=== PATIENT | male | born 1965 | race Caucasian/White ===

== ENCOUNTER 2021-07-22 12:03 | Inpatient (IN) | payer SELFPAY ==
[~2021-07-22] VITALS: Ht 165 cm; Wt 77.0 kg
[~2021-07-22 12:03] MED LIST: ALFU10TA6; AMOX250S60; BTR10SP2; CITA40TA19; CYCL10TA9 PO; HYDR-690 PO; HYDR-707 PO; HYDR50CA3; IMITREX; LEVE500T6; NF-ESOM40C; VALS1TAB43
--- NOTE | 2021-07-22 12:34 | ED GI ---
General Chief Complaint: Abdominal/GI Problems Stated Complaint: DIARRHEA - LOW ABD PAIN Source of Information: Patient (ELINOR OWEN STUDENT) History of Present Illness Date Seen by Provider: Jul 22, 2021 Time Seen by Provider: 12:15 Initial Comments Patient is a 56 year old male with history significant for alcoholism, tobacco use disorder, and HTN who presents to the ED with complaints of 3-5 weeks of increasing abdominal distention, diarrhea, and gas. Reports he's tried a more bland diet at home with no relief of symptoms. Reports taking protonix for heartburn symptoms. The last 3 days he's been having 2-3 episodes of diarrhea per hour almost around the clock. Has had no known sick contacts or recent antibiotic usage. Reports nothing seems to worsen the symptoms. Nothing improves the symptoms. Denies fevers, chills, nausea, vomiting, chest pain, SOB. Reports some mild dysuria. Has not been evaluated for any of these symptoms yet. Reports eating and drinking well with no loss of appetite. No recent significant weight loss reported. Timing/Duration: Other (3-5 weeks) Severity/Quality: Moderate, Full Location: Generalized Abdomen Radiation: No Radiation Activities at Onset: None Modifying Factors: Improves With Movement, Improves With Palpation Associated Symptoms: No Back Pain, No Chest Pain, No Diaphoresis, No Fever/Chills; Heartburn; No Nausea/Vomiting; Rash; No Shortness of Air, No Weakness (ELINOR OWEN STUDENT) Allergies and Home Medications Allergies Coded Allergies: acetaminophen (Unverified Allergy, Mild, 06/30/09) Uncoded Allergies: MAO INHIBITORS (Allergy, Mild, 06/30/09) Patient Home Medication List Home Medication List Reviewed: Yes (ANUJ GARCIA MD) Alfuzosin Hcl (Uroxatral) 10 Mg Tab.sr.24h, (Reported) Entered as Reported by: MOHSEN LOVE on 06/30/09 0830 Amox Tr/Potassium Clavulanate (Amox Tr-K Clv 250-62.5/5 Susp) 250 Mg/5 Ml Susp.recon, (Reported) Entered as Reported by: MOHSEN LOVE on 06/30/09 0835 Butorphanol Tartrate (Stadol Ns) 10 Mg/Ml Can, (Reported) Entered as Reported by: MOHSEN LOVE on 06/30/09830 Citalopram Hydrobromide (Celexa) 40 Mg Tablet, (Reported) Entered as Reported by: MOHSEN LOVE on 06/30/09830 Cyclobenzaprine Hcl (Cyclobenzaprine Hcl) 10 Mg Tablet, 1 EACH PO Q8HR PRN Prescribed by: DEXTER VENCES MD on 06/30/09849 Esomeprazole Mag Trihydrate (Nexium) 40 Mg Capsule., (Reported) Entered as Reported by: MOHSEN LOVE on 06/30/09831 Hctz/Valsartan (Diovan Hct 160-25 Mg Tablet) 1 Tab Tablet, (Reported) Entered as Reported by: MOHSEN LOVE on 06/30/09829 Hydrocodone Bit/Acetaminophen (Lortab 5-500 Tablet) 1 Each Tablet, 1 EACH PO Q 4 - 6 HR PRN Prescribed by: DEXTER VENCES MD on 06/30/09849 Hydrocodone Bit/Ibuprofen (Hydrocodone Bt-Ibuprofen Tab) 1 Tab Tablet, 1 EACH PO Q 4 - 6 HRS PRN Prescribed by: DEXTER VENCES MD on 06/30/09951 Hydroxyzine Pamoate (Hydroxyzine Pamoate 50 Mg Cap) 50 Mg Capsule, (Reported) Entered as Reported by: MOHSEN LOVE on 06/30/09830 Levetiracetam (Levetiracetam) 500 Mg Tablet, (Reported) Entered as Reported by: MOHSEN LOVE on 06/30/09828 [Imitrex] , (Reported) Entered as Reported by: MOHSEN LOVE on 06/30/09830 Review of Systems Review of Systems Constitutional: No chills, No diaphoresis, No fever; malaise EENTM: No Symptoms Reported; No Blurred Vision, No Double Vision Respiratory: No Symptoms Reported; Denies Cough, Denies Shortness of Air Cardiovascular: No Symptoms Reported; Denies Chest Pain; Edema (BLE); Denies Lightheadedness, Denies Palpitations Gastrointestinal: See HPI, Abdomen Distended, Abdominal Pain; Denies Blood St reaked Stools, Denies Constipated; Diarrhea; Denies Nausea, Denies Poor Appetite, Denies Rectal Bleeding, Denies Vomiting Genitourinary: Burning; Denies Discharge, Denies Frequency, Denies Flank Pain Musculoskeletal: no symptoms reported; No back pain, No joint pain, No joint swelling Skin: dryness, rash Psychiatric/Neurological: No Symptoms Reported; Denies Anxiety, Denies Depressed; Headache Endocrine: No Symptoms Reported; Denies Excessive Sweating, Denies Flushing Hematologic/Lymphatic: No Symptoms Reported; Denies Easy Bleeding, Denies Easy Bruising ([employer] STUDENT) All Other Systems Reviewed Negative Unless Noted: Yes ([employer]ANDRA [employer] STUDENT) Past Btcmnnt-Wfignn-Vbrkub Hx Patient Social History Tobacco Use?: Yes Tobacco type used: Cigarettes (1.5 PPDx50 years) Smoking Status: Current Everyday Smoker Smokeless Tobacco Frequency: Never a User Use of E-Cig and/or Vaping dev: No Use of E-Cig and/or Vaping Johnnie: Never a User Substance use?: Yes Substance type: Marijuana Substance frequency: Daily Alcohol Use?: Yes Alcohol type: Hard Liquor (3-4 drinks per day of kali and coke daily) Alcohol Frequency: Daily Pt feels they are or have been: No ([employer]ANDRA [employer] STUDENT) Immunizations Up To Date Tetanus Booster (TDap): Unknown First/Initial COVID19 Vaccinat: 2020 Second COVID19 Vaccination Deven: 2020 COVID19 Vaccine 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 ([employer]) Seasonal Allergies Seasonal Allergies: Yes (ELINOR OWEN [employer] Past Medical History Surgery/Hospitalization HX: HEMMORHOID SURGERY Surgeries: Yes Respiratory: No Currently Using CPAP: No Currently Using BIPAP: No Cardiac: Yes High Cholesterol, Hypertension Neurological: Yes Headaches /Migraines Reproductive Disorders: No HIV/AIDS: No Genitourinary: No Gastrointestinal: Yes Gastroesophageal Reflux, Hemorrhoids, Polyps Musculoskeletal: No Endocrine: No HEENT: No Loss of Vision: Denies Hearing Impairment: Denies Cancer: No Psychosocial: No Integumentary: No Blood Disorders: No ([employer]ANDRA OW[employer]) Physical Exam Vital Signs Vital Signs - First Documented 07/22/21 12:05 Temp 36.2 Pulse 122 Resp 37 B/P (MAP) 175/93 (120) Pulse Ox 98 (ANUJ GARCIA MD) Vital Signs Capillary Refill : (SANDRA OWENKE MED STUDENT) Height/Weight/BMI Height: '" Weight: lbs. oz. kg; BMI Method:Stated General Appearance: WD/WN, no apparent distress HEENT: PERRL/EOMI, TMs normal, pharynx normal, other (poor dentition) Neck: non-tender, full range of motion Respiratory: chest non-tender, no respiratory distress, decreased breath sounds Cardiovascular: normal peripheral pulses, tachycardia Peripheral Pulses: 2+ Radial Pulses (R), 2+ Radial Pulses (L) Gastrointestinal: normal bowel sounds, distended, tenderness (just inferior to umbilicus and left sided. No voluntary guarding. Rovsing, heel strike negative.) Rectal: deferred Extremities: normal range of motion, no calf tenderness, pedal edema (left greater than right), swelling (BLE. Left +2 pitting edema around ankle) Back: normal inspection, no vertebral tenderness Neurologic/Psychiatric: no motor/sensory deficits, alert, oriented x 3 Skin: normal color, warm/dry, rash (erythematous rash to superior anterior thor ax just below neck. ) Lymphatic: no adenopathy (Head and Neck) (ELINOR OWEN MED STUDENT) Progress/Results/Core Measures Results/Orders Lab Results Laboratory Tests Test 07/22/21 12:20 07/22/21 12:42 Range/Units White Blood Count 20.5 H 4.3-11.0 10^3/uL Red Blood Count 3.66 L 4.30-5.52 10^6/uL Hemoglobin 14.0 13.3-17.7 g/dL Hematocrit 40 40-54 % Mean Corpuscular Volume 109 H 80-99 fL Mean Corpuscular Hemoglobin 38 H 25-34 pg Mean Corpuscular Hemoglobin Concent 35 32-36 g/dL Red Cell Distribution Width 16.3 H 10.0-14.5 % Platelet Count 315 130-400 10^3/uL Mean Platelet Volume 10.2 9.0-12.2 fL Immature Granulocyte % (Auto) 4 % Neutrophils (%) (Auto) 69 42-75 % Lymphocytes (%) (Auto) 24 12-44 % Monocytes (%) (Auto) 3 0-12 % Eosinophils (%) (Auto) 1 0-10 % Basophils (%) (Auto) 0 0-10 % Neutrophils # (Auto) 14.2 H 1.8-7.8 10^3/uL Lymphocytes # (Auto) 4.8 H 1.0-4.0 10^3/uL Monocytes # (Auto) 0.5 0.0-1.0 10^3/uL Eosinophils # (Auto) 0.1 0.0-0.3 10^3/uL Basophils # (Auto) 0.1 0.0-0.1 10^3/uL Immature Granulocyte # (Auto) 0.8 H 0.0-0.1 10^3/uL Neutrophils % (Manual) 68 % Lymphocytes % (Manual) 30 % Monocytes % (Manual) 2 % Poikilocytosis SLIGHT Anisocytosis SLIGHT Macrocytosis MODERATE Prothrombin Time 14.3 12.2-14.7 SEC INR Comment 1.1 0.8-1.4 Activated Partial Thromboplast Time 31 24-35 SEC Sodium Level 139 135-145 MMOL/L Potassium Level 2.3 *L 3.6-5.0 MMOL/L Chloride Level 98 98-107 MMOL/L Carbon Dioxide Level 27 21-32 MMOL/L Anion Gap 14 5-14 MMOL/L Blood Urea Nitrogen 6 L 7-18 MG/DL Creatinine 0.91 0.60-1.30 MG/DL Estimat Glomerular Filtration Rate 98 BUN/Creatinine Ratio 7 Glucose Level 178 H 70-105 MG/DL Calcium Level 8.6 8.5-10.1 MG/DL Corrected Calcium 8.9 8.5-10.1 MG/DL Total Bilirubin 1.1 H 0.1-1.0 MG/DL Aspartate Amino Transf (AST/SGOT) 48 H 5-34 U/L Alanine Aminotransferase (ALT/SGPT) 21 0-55 U/L Alkaline Phosphatase 123 40-136 U/L Total Protein 6.7 6.4-8.2 GM/DL Albumin 3.6 3.2-4.5 GM/DL Serum Alcohol < 10 <10 MG/DL Urine Color ORANGE Urine Clarity SL CLOUDY Urine pH 6.5 5-9 Urine Specific [place] 1.025 H 1.016-1.022 Urine Protein 1+ H NEGATIVE Urine Glucose (UA) NEGATIVE NEGATIVE Urine Ketones NEGATIVE NEGATIVE Urine Nitrite POSITIVE H NEGATIVE Urine Bilirubin 1+ H NEGATIVE Urine Urobilinogen 4.0 < = 1.0 MG/DL Urine Leukocyte Esterase NEGATIVE NEGATIVE Urine RBC (Auto) NEGATIVE NEGATIVE Urine RBC NONE /HPF Urine WBC RARE /HPF Urine Squamous Epithelial Cells 0-2 /HPF Urine Crystals NONE /LPF Urine Bacteria NEGATIVE /HPF Urine Casts NONE /LPF Urine Mucus SMALL H /LPF Urine Culture Indicated NO (ANUJ GARCIA MD) My Orders Orders - ANUJ GARCIA MD Ed Iv/Invasive Line Start (07/22/21 12:30) Cbc With Automated Diff (07/22/21 12:32) Comprehensive Metabolic Panel (07/22/21 12:32) Alcohol (07/22/21 12:32) Ua Culture If Indicated (07/22/21 12:33) Manual Differential (07/22/21 12:20) Protime With Inr (07/22/21 12:54) Partial Thromboplastin Time (07/22/21 12:54) Ct Abdomen/Pelvis Wo (07/22/21 13:29) Ns Iv 1000 Ml (Sodium Chloride 0.9%) (07/22/21 13:30) Potassium Cl 10meq/50ml Ivpb (Kcl 10 Meq (07/22/21 13:30) Ciprofloxacin Iv 400mg/200ml (Cipro Iv S (07/22/21 14:45) Metronidazole 500mg/100ml Ivpb (Flagyl 5 (07/22/21 14:45) Ed Admission (Communication) (07/22/21 15:20) Stool Culture (07/22/21 15:20) Occult Blood Stool (07/22/21 15:20) Parasite Scrn Stool Giard Cryp (07/22/21 15:20) C Difficile Ag + Toxin A/B. (07/22/21 15:20) Isolation Central Supply Req (07/22/21 15:20) (ANUJ GARCIA MD) Vital Signs/I&O 07/22/21 12:05 Temp 36.2 Pulse 122 Resp 37 B/P (MAP) 175/93 (120) Pulse Ox 98 (ANUJ GARCIA MD) Progress Progress Note : Time: 14:24 Progress Note Patient seen and evaluated by me, 56-year-old male who presents to the emergency department with a chief complaint of increasing abdominal girth, lower abdominal discomfort and too numerous to count episodes of diarrhea steadily increasing over the last 2 to 4 weeks. Patient is basically un-doctored. He has not seen a physician in at least 3 years. States that he drinks daily up to 5 mixed drinks a day. Smokes heavily. Denies any recent fevers, chills. No cough or shortness of breath. No blood that he has noted in his stool. Complains of a little urinary discomfort. Darker than normal urine at this ER visit. Feels something in his belly "moving around" when he turns onto his side. Great difficulty in sleeping at night secondary to abdominal discomfort. States he is only able to sleep 20 minutes at a time. No daily medications reported at this time - previous diagnosis of HTN Exam is pertinent for grossly distended abdomen, no palpable fluid wave however abdomen gives the appearance of ascites. Liver margin is felt quite low in the abdomen. Tender in the lower abdominal quadrants bilaterally no rebound or involuntary guarding. Bowel sounds are present. Patient is not icteric. Assessment: Labs reviewed, patient is profoundly hypokalemic with a serum potassium of 2.3. Quite tachycardic with a heart rate in the 120s. CT abdomen and pelvis shows nodular enlarged liver with a prominent gallbladder and findings suggestive of sigmoid diverticulitis. Will admit for fluids potassium replacement and antibiotics for the diverticulitis. Patient will likely need alcohol detox protocol. Will discuss with Dr. Mcdonnell, consult to Dr. Moore. (ANUJ GARCIA MD) Diagnostic Imaging Diagonstic Imaging: CT Plain Films/CT/US/NM/MRI: chest Comments [facility] [place], [place] NAME: SHRUTHI GUIDO MED REC#: [id number] PT STATUS: REG ER : 1965 PHYSICIAN: ANUJ GARCIA MD ADMIT DATE: 07/22/21/ER Draft Date of Exam:07/22/21 CT ABDOMEN/PELVIS WO PROCEDURE: CT abdomen and pelvis without contrast. TECHNIQUE: Multiple contiguous axial images were obtained through the abdomen and pelvis without the use of intravenous contrast. Auto Exposure Controls were utilized during the CT exam to meet ALARA standards for radiation dose reduction. INDICATION: Lower abdominal pain and diarrhea as well as bloating. COMPARISON: No prior studies are available for comparison. FINDINGS: Lung bases are clear of acute infiltrates. There is a calcified granuloma in the left lower lobe. The liver does show diffuse low density suggestive of hepatic steatosis. Liver parenchyma is heterogeneous. The liver is also enlarged at approximately 23 cm. There is some slight nodularity to the contour to the liver, and the possibility of cirrhosis cannot be entirely excluded. No discrete liver mass is seen. The gallbladder contains small stones. There is no biliary ductal dilatation. Pancreas is unremarkable. The spleen appears to be normal in size. Kidneys contain cortical low-attenuation lesions suggestive of cysts. There is no calculi or hydronephrosis. The aorta is heavily calcified but nonaneurysmal. Bowel loops are normal in caliber. There is no obstruction. There is a long segment of significant wall thickening involving the sigmoid colon. There is diverticulosis of the sigmoid colon. There is some perisigmoidal inflammation, and features could be owing to acute diverticulitis. There is no abscess formation or bowel obstruction seen. There is no free fluid. No free air is seen. The bladder is decompressed. Prostate is unremarkable. IMPRESSION: 1. Hepatomegaly and hepatic steatosis. There is a slight nodular contour to the liver, and possibility of cirrhosis cannot be entirely excluded. No discrete liver mass is detected. 2. Cholelithiasis. 3. Findings suggestive of acute sigmoid diverticulitis. No abscess formation or bowel obstruction is identified. Dictated on workstation # [id number] Dict: 07/22/21 1406 Trans: 07/22/21 1416 [id number] Interpreted by: ESTRELLA SALAS MD Electronically signed by: (ANUJ GARCIA MD) Departure Communication (Admissions) Time/Spoke to Admitting Phy: 15:[address] Mcdonnell; will do Que'd orders Time/Spoke to Consulting Phy: 15:[address] Moore (ANUJ GARCIA MD) Impression Primary Impression: Acute diverticulitis Additional Impressions: Hypokalemia due to excessive gastrointestinal loss of potassium Alcoholism Disposition: ADMITTED INPATIENT Condition: Stable Admissions Decision to Admit Reason: Admit from ER (General) Decision to Admit/Date: Jul 22, 2021 Time/Decision to Admit Time: 14:28 (ANUJ GARCIA MD) Departure-Patient Inst. Referrals: NO,LOCAL PHYSICIAN (PCP/Family) Primary Care Physician Verification and Attestation of Medical Student E/M Service A medical student performed and documented this service in my presence. I reviewed and verified all information documented by the medical student and made modifications to such information, when appropriate. I personally performed the physical exam and medical decision making. Anuj Garcia, Jul 22, 2021,14:01 (ANUJ GARCIA MD) ELINOR OWEN MED STUDENT Jul 22, 2021 12:34 ANUJ GARCIA MD Jul 22, 2021 14:01
[2021-07-22 12:46] LABS: BILIRUBIN,URINE 1+ (NEGATIVE); CLARITY,URINE SL CLOUDY; COLOR,URINE ORANGE; GLUCOSE, URINE (UA) NEGATIVE (NEGATIVE); KETONES,URINE NEGATIVE (NEGATIVE); LEUKOCYTE ESTERASE ,URINE NEGATIVE (NEGATIVE); NITRITE,URINE POSITIVE (NEGATIVE); PH,URINE 6.5 (5-9); PROTEIN,URINE 1+ (NEGATIVE)
[2021-07-22 12:47] LABS: BASOPHILS # (AUTO) 0.1 10^3/uL (0.0-0.1); BASOPHILS % (AUTO) 0 % (0-10); EOSINOPHILS # (AUTO) 0.1 10^3/uL (0.0-0.3); EOSINOPHILS % (AUTO) 1 % (0-10); HEMATOCRIT 40 % (40-54); LYMPHOCYTES # (AUTO) 4.8 10^3/uL (1.0-4.0); LYMPHOCYTES % (AUTO) 24 % (12-44); MEAN CORPUSCULAR HEMOGLOBIN 38 pg (25-34); MEAN CORPUSCULAR HGB CONC 35 g/dL (32-36); MEAN CORPUSCULAR VOLUME 109 fL (80-99); MEAN PLATELET VOLUME 10.2 fL (9.0-12.2); MONOCYTES # (AUTO) 0.5 10^3/uL (0.0-1.0); MONOCYTES % (AUTO) 3 % (0-12); NEUTROPHILS # (AUTO) 14.2 10^3/uL (1.8-7.8); NEUTROPHILS % (AUTO) 69 % (42-75); PLATELET COUNT 315 10^3/uL (130-400); WHITE BLOOD COUNT 20.5 10^3/uL (4.3-11.0)
[2021-07-22 12:55] LABS: WBC,URINE RARE /HPF
[2021-07-22 12:56] LABS: BACTERIA,URINE NEGATIVE /HPF; SQUAMOUS EPITHELIAL CELL,UR 0-2 /HPF
[2021-07-22 12:58] LABS: ALANINE AMINOTRANSFERASE 21 U/L (0-55); ALBUMIN 3.6 GM/DL (3.2-4.5); ALKALINE PHOSPHATASE 123 U/L (40-136); BILIRUBIN,TOTAL 1.1 MG/DL (0.1-1.0); BUN/CREATININE RATIO 7; CALCIUM 8.6 MG/DL (8.5-10.1); CARBON DIOXIDE 27 MMOL/L (21-32); CHLORIDE 98 MMOL/L (98-107); CREATININE SERUM 0.91 MG/DL (0.60-1.30); GFR ESTIMATED 98; GLUCOSE 178 MG/DL (70-105); SODIUM 139 MMOL/L (135-145); TOTAL PROTEIN 6.7 GM/DL (6.4-8.2)
[2021-07-22 13:00] LABS: POTASSIUM 2.3 MMOL/L (3.6-5.0)
[2021-07-22 13:11] LABS: INR 1.1 (0.8-1.4); PROTHROMBIN TIME PATIENT 14.3 SEC (12.2-14.7)
[2021-07-22 13:21] LABS: ANISOCYTOSIS SLIGHT; LYMPHOCYTES % (MANUAL) 30 %; MONOCYTES % (MANUAL) 2 %; NEUTROPHILS % (MANUAL) 68 %; POIKILOCYTOSIS SLIGHT
[2021-07-22] MEDS ORDERED: NS IV 1000 ML 1,000 ML IV SCH ×2 (13:30→16:15)
--- NOTE | 2021-07-22 14:16 | Diagnostic Imaging Report ---
PROCEDURE: CT abdomen and pelvis without contrast. TECHNIQUE: Multiple contiguous axial images were obtained through the abdomen and pelvis without the use of intravenous contrast. Auto Exposure Controls were utilized during the CT exam to meet ALARA standards for radiation dose reduction. INDICATION: Lower abdominal pain and diarrhea as well as bloating. COMPARISON: No prior studies are available for comparison. FINDINGS: Lung bases are clear of acute infiltrates. There is a calcified granuloma in the left lower lobe. The liver does show diffuse low density suggestive of hepatic steatosis. Liver parenchyma is heterogeneous. The liver is also enlarged at approximately 23 cm. There is some slight nodularity to the contour to the liver, and the possibility of cirrhosis cannot be entirely excluded. No discrete liver mass is seen. The gallbladder contains small stones. There is no biliary ductal dilatation. Pancreas is unremarkable. The spleen appears to be normal in size. Kidneys contain cortical low-attenuation lesions suggestive of cysts. There is no calculi or hydronephrosis. The aorta is heavily calcified but nonaneurysmal. Bowel loops are normal in caliber. There is no obstruction. There is a long segment of significant wall thickening involving the sigmoid colon. There is diverticulosis of the sigmoid colon. There is some perisigmoidal inflammation, and features could be owing to acute diverticulitis. There is no abscess formation or bowel obstruction seen. There is no free fluid. No free air is seen. The bladder is decompressed. Prostate is unremarkable. IMPRESSION: 1. Hepatomegaly and hepatic steatosis. There is a slight nodular contour to the liver, and possibility of cirrhosis cannot be entirely excluded. No discrete liver mass is detected. 2. Cholelithiasis. 3. Findings suggestive of acute sigmoid diverticulitis. No abscess formation or bowel obstruction is identified. Dictated by: Dictated on workstation # [id number]
[2021-07-22] MEDS ORDERED: CIPROFLOXACIN IV 400MG/200ML 200 ML IV ONE (14:45)
[2021-07-22] MEDS ORDERED: metroNIDAZOLE 500MG/100ML IVPB 100 ML IV ONE (14:45)
[2021-07-22] MEDS: POTASSIUM CL 10MEQ/50ML IVPB 50 ML IV SCH ×2 (14:55→15:55)
--- NOTE | 2021-07-22 16:54 | Consultation - Surgery ---
SVETAMARTHA 07/22/21 1654: History of Present Illness History of Present Illness Patient Consulted On(obdulia/time) 07/22/21 16:47 Date Seen by Provider: Jul 22, 2021 Time Seen by Provider: 16:50 Reason for Visit: Diarrhea; abdominal pain History of Present Illness Pt 56 yo male with GERD, HTN, migraines, and hx of hemorrhoids that presented to the ER with 5 or 6 weeks of LLQ pain and explosive diarrhea. The 6/10 pain was worse with movement and better after going to the bathroom. It was a cramping pain that radiated to his back, now it is more constant and sharp. He has had no N/V, but frequent yellow diarrheal episodes (9 today). Denies hematochezia and melena. The pt had diverticula diagnosed on colonoscopy 3-4 years ago, but has not had diverticulitis symptoms before. He last ate before he came to the ER. He is now on a CLD. Denies CP, SOB, fever, and chills currently. Allergies and Home Medications Allergies Coded Allergies: acetaminophen (Unverified Allergy, Mild, 06/30/09) Uncoded Allergies: MAO INHIBITORS (Allergy, Mild, 06/30/09) Patient Home Medication List Alfuzosin Hcl (Uroxatral) 10 Mg Tab.sr.24h, (Reported) Entered as Reported by: MOHSEN LOVE on 06/30/09 0830 Amox Tr/Potassium Clavulanate (Amox Tr-K Clv 250-62.5/5 Susp) 250 Mg/5 Ml Susp.recon, (Reported) Entered as Reported by: MOHSEN LOVE on 06/30/09 0835 Butorphanol Tartrate (Stadol Ns) 10 Mg/Ml Can, (Reported) Entered as Reported by: MOHSEN LOVE on 06/30/09 0831 Citalopram Hydrobromide (Celexa) 40 Mg Tablet, (Reported) Entered as Reported by: MOHSEN LOVE on 06/30/09 0831 Cyclobenzaprine Hcl (Cyclobenzaprine Hcl) 10 Mg Tablet, 1 EACH PO Q8HR PRN Prescribed by: DEXTER VENCES MD on 06/30/09 0850 Esomeprazole Mag Trihydrate (Nexium) 40 Mg Capsule., (Reported) Entered as Reported by: MOHSEN LOVE on 06/30/09 0832 Hctz/Valsartan (Diovan Hct 160-25 Mg Tablet) 1 Tab Tablet, (Reported) Entered as Reported by: MOHSEN LOVE on 06/30/09 08 Hydrocodone Bit/Acetaminophen (Lortab 5-500 Tablet) 1 Each Tablet, 1 EACH PO Q 4 - 6 HR PRN Prescribed by: DEXTER VENCES MD on 06/30/09 0850 Hydrocodone Bit/Ibuprofen (Hydrocodone Bt-Ibuprofen Tab) 1 Tab Tablet, 1 EACH PO Q 4 - 6 HRS PRN Prescribed by: DEXTER VENCES MD on 06/30/09 09 Hydroxyzine Pamoate (Hydroxyzine Pamoate 50 Mg Cap) 50 Mg Capsule, (Reported) Entered as Reported by: MOHSEN LOVE on 06/30/09830 Levetiracetam (Levetiracetam) 500 Mg Tablet, (Reported) Entered as Reported by: MOHSEN LOVE on 06/30/09 08 [Imitrex] , (Reported) Entered as Reported by: MOHSEN LOVE on 06/30/09830 Past Rexfbhy-Jzkjiq-Wcznkz Hx Patient Social History Smoking Status: Current Everyday Smoker (1.5 pack/day since ) Type Used: Cigarettes Alcohol Use?: Yes (4-5 kali and coke per day) Substance type: Marijuana Immunizations Up To Date Tetanus Booster (TDap): Unknown Seasonal Allergies Seasonal Allergies: Yes Surgeries History of Surgeries: Yes Surgeries: Tonsillectomy Respiratory History of Respiratory Disorde: No Cardiovascular History of Cardiac Disorders: Yes Cardiac Disorders: High Cholesterol, Hypertension Neurological History of Neurological Disord: Yes Neurological Disorders: Headaches /Migraines Reproductive System Hx Reproductive Disorders: No HIV/AIDS: No Genitourinary History of Genitourinary Disor: Yes Genitourinary Disorders: Kidney Stones Gastrointestinal History of Gastrointestinal Di: Yes Gastrointestinal Disorders: Gastroesophageal Reflux, Hemorrhoids, Polyps Musculoskeletal History of Musculoskeletal Dis: Yes Musculoskeletal Disorders: Arthritis (hands) Endocrine History of Endocrine Disorders: No HEENT History of HEENT Disorders: No Loss of Vision: Denies Hearing Impairment: Denies Cancer History of Cancer: No Psychosocial History of Psychiatric Problem: No Integumentary History of Skin or Integumenta: No Blood Transfusions History of Blood Disorders: No Family Medical History Significant Family History: Heart Disease (dad- CHF) Review of Systems-General Constitutional: No chills, No dizziness, No fever EENTM: No hearing loss, No vision loss Respiratory: cough; No hemoptysis; phlegm; No short of breath Cardiovascular: No chest pain, No palpitations Gastrointestinal: abdominal pain, diarrhea; No melena, No nausea, No vomiting Genitourinary: No dysuria, No frequency, No hematuria Musculoskeletal: muscle cramps (back), other (arthritis in hands) Skin: rash (chest/neck since covid, may be a little red), other (bruise on L owens) Psychiatric/Neurological: Denies Anxiety, Denies Depressed, Denies Headache, Denies Seizure; Other (migraine hx) Physical Exam-General Problems Physical Exam Vital Signs Vital Signs - First Documented 07/22/21 12:05 Temp 36.2 Pulse 122 Resp 37 B/P (MAP) 175/93 (120) Pulse Ox 98 Capillary Refill : Less Than 3 Seconds General Appearance: WD/WN, no apparent distress Eyes: Bilateral Eye PERRL, Bilateral Eye EOMI HEENT: PERRL/EOMI; No photophobia Neck: supple, normal inspection Respiratory: normal breath sounds, no respiratory distress, no accessory muscle use Cardiovascular: regular rate, rhythm, no murmur Peripheral Pulses: 2+ Radial Pulses (R), 2+ Radial Pulses (L) Gastrointestinal: soft, tenderness (suprapubic) Extremities: pedal edema, swelling (L ankle, tripped the other day. Small bruise) Neurologic/Psychiatric: alert, normal mood/affect, oriented x 3 Skin: normal color, warm/dry Lymphatic: no adenopathy Data Review Labs Laboratory Tests 07/22/21 12:20: White Blood Count 20.5H, Red Blood Count 3.66L, Hemoglobin 14.0, Hematocrit 40, Mean Corpuscular Volume 109H, Mean Corpuscular Hemoglobin 38H, Mean Corpuscular Hemoglobin Concent 35, Red Cell Distribution Width 16.3H, Platelet Count 315, Mean Platelet Volume 10.2, Immature Granulocyte % (Auto) 4, Neutrophils (%) (Auto) 69, Lymphocytes (%) (Auto) 24, Monocytes (%) (Auto) 3, Eosinophils (%) (Auto) 1, Basophils (%) (Auto) 0, Neutrophils # (Auto) 14.2H, Lymphocytes # (Auto) 4.8H, Monocytes # (Auto) 0.5, Eosinophils # (Auto) 0.1, Basophils # (Auto) 0.1, Immature Granulocyte # (Auto) 0.8H, Neutrophils % (Manual) 68, Lymphocytes % (Manual) 30, Monocytes % (Manual) 2, Poikilocytosis SLIGHT, Anisocytosis SLIGHT, Macrocytosis MODERATE, Prothrombin Time 14.3, INR Comment 1.1, Activated Partial Thromboplast Time 31, Sodium Level 139, Potassium Level 2.3*L, Chloride Level 98, Carbon Dioxide Level 27, Anion Gap 14, Blood Urea Nitrogen 6L, Creatinine 0.91, Estimat Glomerular Filtration Rate 98, BUN/Creatinine Ratio 7, Glucose Level 178H, Calcium Level 8.6, Corrected Calcium 8.9, Total Bilirubin 1.1H, Aspartate Amino Transf (AST/SGOT) 48H, Alanine Aminotransferase (ALT/SGPT) 21, Alkaline Phosphatase 123, Total Protein 6.7, Albumin 3.6, Serum Alcohol < 10 07/22/21 12:42: Urine Color ORANGE, Urine Clarity SL CLOUDY, Urine pH 6.5, Urine Specific [place] 1.025H, Urine Protein 1+H, Urine Glucose (UA) NEGATIVE, Urine Ketones NEGATIVE, Urine Nitrite POSITIVEH, Urine Bilirubin 1+H, Urine Urobilinogen 4.0, Urine Leukocyte Esterase NEGATIVE, Urine RBC (Auto) NEGATIVE, Urine RBC NONE, Ur ine WBC RARE, Urine Squamous Epithelial Cells 0-2, Urine Crystals NONE, Urine Bacteria NEGATIVE, Urine Casts NONE, Urine Mucus SMALLH, Urine Culture Indicated NO Radiology CT ABDOMEN/PELVIS WO PROCEDURE: CT abdomen and pelvis without contrast. TECHNIQUE: Multiple contiguous axial images were obtained through the abdomen and pelvis without the use of intravenous contrast. Auto Exposure Controls were utilized during the CT exam to meet ALARA standards for radiation dose reduction. INDICATION: Lower abdominal pain and diarrhea as well as bloating. COMPARISON: No prior studies are available for comparison. FINDINGS: Lung bases are clear of acute infiltrates. There is a calcified granuloma in the left lower lobe. The liver does show diffuse low density suggestive of hepatic steatosis. Liver parenchyma is heterogeneous. The liver is also enlarged at approximately 23 cm. There is some slight nodularity to the contour to the liver, and the possibility of cirrhosis cannot be entirely excluded. No discrete liver mass is seen. The gallbladder contains small stones. There is no biliary ductal dilatation. Pancreas is unremarkable. The spleen appears to be normal in size. Kidneys contain cortical low-attenuation lesions suggestive of cysts. There is no calculi or hydronephrosis. The aorta is heavily calcified but nonaneurysmal. Bowel loops are normal in caliber. There is no obstruction. There is a long segment of significant wall thickening involving the sigmoid colon. There is diverticulosis of the sigmoid colon. There is some perisigmoidal inflammation, and features could be owing to acute diverticulitis. There is no abscess formation or bowel obstruction seen. There is no free fluid. No free air is seen. The bladder is decompressed. Prostate is unremarkable. IMPRESSION: 1. Hepatomegaly and hepatic steatosis. There is a slight nodular contour to the liver, and possibility of cirrhosis cannot be entirely excluded. No discrete liver mass is detected. 2. Cholelithiasis. 3. Findings suggestive of acute sigmoid diverticulitis. No abscess formation or bowel obstruction is identified. Assessment/Plan Assessment/Plan Assessment/Plan Acute sigmoid diverticulitis- suprapubic abdominal pain; diarrhea Cholelithiasis Alcohol abuse Hx cardiac cath no intervention GERD HTN Hx hemorrhoids Hypokalemia 2.3 Leukocytosis 20.5 CLD IVFs, KCl Continue Abx Monitor labs and vitals BUZZ PYLE DO 07/22/211910: History of Present Illness History of Present Illness Time Seen by Provider: 16:26 History of Present Illness Surgery asked to consult regarding Acute Diverticulitis. HPI per ED: Patient is a 56 year old male with history significant for alcoholism, tobacco use disorder, and HTN who presents to the ED with complaints of 3-5 weeks of increasing abdominal distention, diarrhea, and gas. Reports he's tried a more bland diet at home with no relief of symptoms. Reports taking protonix for heartburn symptoms. The last 3 days he's been having 2-3 episodes of diarrhea per hour almost around the clock. Has had no known sick contacts or recent antibiotic usage. Reports nothing seems to worsen the symptoms. Nothing improves the symptoms. Denies fevers, chills, nausea, vomiting, chest pain, SOB. Reports some mild dysuria. Has not been evaluated for any of these symptoms yet. Reports eating and drinking well with no loss of appetite. No recent significant weight loss reported. Timing/Duration: Other (3-5 weeks) Severity/Quality: Moderate, Full Location: Generalized Abdomen Radiation: No Radiation Activities at Onset: None Modifying Factors: Improves With Movement, Improves With Palpation Associated Symptoms: No Back Pain, No Chest Pain, No Diaphoresis, No Fever/Chills; Heartburn; No Nausea/Vomiting; Rash; No Shortness of Air, No Weakness I saw pt down in ER. He was sitting up comfortably in his bed. He stated he had never had pain like this before and denied any RUQ pain. His other main complaint besides pain is diarrhea; which has been going on for 3-4 weeks and getting worse the past couple of days. Allergies and Home Medications Allergies Coded Allergies: acetaminophen (Unverified Allergy, Mild, 06/30/09) Uncoded Allergies: MAO INHIBITORS (Allergy, Mild, 06/30/09) Patient Home Medication List Home Medication List Reviewed: Yes Alfuzosin Hcl (Uroxatral) 10 Mg Tab.sr.24h, (Reported) Entered as Reported by: MOHSEN LOVE on 06/30/09 0830 Amox Tr/Potassium Clavulanate (Amox Tr-K Clv 250-62.5/5 Susp) 250 Mg/5 Ml Susp.recon, (Reported) Entered as Reported by: MOHSEN LOVE on 06/30/09 0835 Butorphanol Tartrate (Stadol Ns) 10 Mg/Ml Can, (Reported) Entered as Reported by: MOHSEN LOVE on 06/30/09 0831 Citalopram Hydrobromide (Celexa) 40 Mg Tablet, (Reported) Entered as Reported by: MOHSEN LOVE on 06/30/09 0831 Cyclobenzaprine Hcl (Cyclobenzaprine Hcl) 10 Mg Tablet, 1 EACH PO Q8HR PRN Prescribed by: DEXTER VENCES MD on 06/30/09 0850 Esomeprazole Mag Trihydrate (Nexium) 40 Mg Capsule., (Reported) Entered as Reported by: MOHSEN LOVE on 06/30/09 0832 Hctz/Valsartan (Diovan Hct 160-25 Mg Tablet) 1 Tab Tablet, (Reported) Entered as Reported by: MOHSEN LOVE on 06/30/09 0830 Hydrocodone Bit/Acetaminophen (Lortab 5-500 Tablet) 1 Each Tablet, 1 EACH PO Q 4 - 6 HR PRN Prescribed by: DEXTER VENCES MD on 06/30/09 0850 Hydrocodone Bit/Ibuprofen (Hydrocodone Bt-Ibuprofen Tab) 1 Tab Tablet, 1 EACH PO Q 4 - 6 HRS PRN Prescribed by: DEXTER VENCES MD on 06/30/09 09 Hydroxyzine Pamoate (Hydroxyzine Pamoate 50 Mg Cap) 50 Mg Capsule, (Reported) Entered as Reported by: MOHSEN LOVE on 06/30/09830 Levetiracetam (Levetiracetam) 500 Mg Tablet, (Reported) Entered as Reported by: MOHSEN LOVE on 06/30/09 08 [Imitrex] , (Reported) Entered as Reported by: MOHSEN LOVE on 06/30/09830 Past Pyogzsq-Iidmdh-Xjeyog Hx Patient Social History Smoking Status: Current Everyday Smoker (1.5 pack/day since 7) Type Used: Cigarettes Alcohol Use?: Yes (4-5 kali and coke per day) Surgeries History of Surgeries: Yes (previous colonoscopies) Surgeries: Tonsillectomy Respiratory History of Respiratory Disorde: No Cardiovascular History of Cardiac Disorders: Yes Cardiac Disorders: High Cholesterol, Hypertension Neurological History of Neurological Disord: Yes Neurological Disorders: Headaches /Migraines Genitourinary History of Genitourinary Disor: Yes Genitourinary Disorders: Kidney Stones Gastrointestinal History of Gastrointestinal Di: Yes Gastrointestinal Disorders: Gastroesophageal Reflux, Polyps Musculoskeletal History of Musculoskeletal Dis: Yes Musculoskeletal Disorders: Arthritis (hands) Endocrine History of Endocrine Disorders: No HEENT History of HEENT Disorders: No Loss of Vision: Denies Hearing Impairment: Denies Cancer History of Cancer: No Psychosocial History of Psychiatric Problem: No Family Medical History Significant Family History: Heart Disease (dad- CHF) Review of Systems-General Constitutional: No chills, No dizziness, No fever EENTM: No hearing loss, No vision loss, No mouth swelling Respiratory: cough; No hemoptysis; phlegm; No short of breath Cardiovascular: No chest pain, No palpitations Gastrointestinal: abdominal pain, diarrhea, heartburn; No melena, No nausea, No vomiting Genitourinary: dysuria; No frequency, No hematuria Musculoskeletal: joint pain, muscle cramps (back), other (arthritis in hands) Skin: rash (chest/neck since covid, may be a little red), other (bruise on L s hin) Psychiatric/Neurological: Denies Anxiety, Denies Depressed, Denies Headache, Denies Seizure; Other (migraine hx) Physical Exam-General Problems Physical Exam General Appearance: WD/WN, no apparent distress (large protruding abdomen) Eyes: Bilateral Eye PERRL, Bilateral Eye EOMI HEENT: No scleral icterus (R), No scleral icterus (L), No photophobia Neck: supple, normal inspection Respiratory: normal breath sounds, no respiratory distress, no accessory muscle use Cardiovascular: regular rate, rhythm, no murmur Peripheral Pulses: 2+ Radial Pulses (R), 2+ Radial Pulses (L) Gastrointestinal: soft, tenderness (suprapubic), hernia (umbilical) Rectal: deferred Extremities: pedal edema, swelling (L ankle, tripped the other day. Small bruise) Neurologic/Psychiatric: alert, normal mood/affect, oriented x 3 Skin: normal color, warm/dry Lymphatic: no adenopathy (neck, axilla or groin) Assessment/Plan Assessment/Plan Assessment/Plan Acute sigmoid diverticulitis- suprapubic abdominal pain; diarrhea Cholelithiasis - probably just incidental finding and would not do anything about this Alcohol abuse Hx cardiac cath no intervention GERD HTN Hx hemorrhoids Hypokalemia 2.3 Leukocytosis 20.5 Pt probably ok to start on clears, needs stool studies for O&P and all other enteric organisms. IVFs, KCl, IV ABX, Monitor labs and vitals Supervisory-Addendum Brief Verification & Attestation Participated in pt care: history, MDM, physical Personally performed: exam, history, MDM, supervision of care Care discussed with: Medical Student Procedures: n/a Verification and Attestation of Medical Student E/M Service A medical student performed and documented this service. I then reviewed and verified all information documented by the medical student and made modifications to such information, when appropriate. I personally performed a physical exam, medical decision making and then discussed any differences between the notes and made revisions as necessary to create one note. Buzz Pyle , 07/22/21 , 19:15 MARTHA BANGURA Jul 22, 2021 16:54 BUZZ PYLE DO Jul 22, 2021 19:11
[2021-07-22] MEDS ORDERED: MELATONIN 3 MG TABLET PO PRN (17:15)
[2021-07-22] MEDS ORDERED: ONDANSETRON 4 MG/2 ML (SDV) Z0FRAN IV PRN (17:15)
[2021-07-22] MEDS ORDERED: ANTACID SUSP 30 ML UDC (MYLANTA) PO PRN ×2 (17:15→17:30)
[2021-07-22] MEDS ORDERED: polyethylene glycoL POWDER 17 GM (MIRALAX) PACK PO PRN (17:15)
[2021-07-22] MEDS ORDERED: LORazepam INJ 2 MG/ML (ATIVAN) VIAL IM/IV PRN (17:30)
[2021-07-22] MEDS ORDERED: SENNA W/DOCUSATE (SENOKOT S) TABLET PO PRN (17:30)
[2021-07-22] MEDS ORDERED: LORazepam INJ 2 MG/ML (ATIVAN) VIAL IV PRN (17:30)
[2021-07-22] MEDS ORDERED: 1/2 NS IV SOLUTION 1,000 ML IV PRN (17:30)
[2021-07-22] MEDS ORDERED: D5 1/2 NS 1000 ML IV SOLUTION 1,000 ML IV PRN (17:30)
[2021-07-22] MEDS ORDERED: LORazepam 1 MG (ATIVAN) TAB PO PRN (17:30)
[2021-07-22] MEDS ORDERED: ONDANSETRON 4 MG (ZOFRAN) ORAL DISSOLVE TAB SL PRN (17:30)
[2021-07-22] MEDS ORDERED: CIPROFLOXACIN IV 400MG/200ML 200 ML IV SCH (18:00)
[2021-07-22] MEDS: NICOTINE 21 MG (NICODERM) PATCH TD SCH (18:05)
[2021-07-22] MEDS: LACTATED RINGERS 1,000 ML IV SCH (18:05)
[2021-07-22] MEDS: ENOXAPARIN 40 MG/0.4 ML (LOVENOX) SYR SC SCH (18:05)
[2021-07-22 18:37] LABS: CALCIUM 7.9 MG/DL (8.5-10.1); CREATININE SERUM 0.78 MG/DL (0.60-1.30); MAGNESIUM 1.9 MG/DL (1.6-2.4); POTASSIUM 2.7 MMOL/L (3.6-5.0)
[2021-07-22] MEDS ORDERED: KCL 20 MEQ TAB (K-DUR) PO NR ×3 (18:45→22:45)
[2021-07-22 19:40] VITALS: BP 143/72
[2021-07-22] MEDS: ONDANSETRON 4 MG/2 ML (SDV) Z0FRAN IV PRN (21:57)
[2021-07-22] MEDS: diphenhydrAMINE 25 MG TAB (BENADRYL) PO PRN (22:14)
[2021-07-23 00:12] VITALS: BP 141/74
[2021-07-23] MEDS: metroNIDAZOLE 500MG/100ML IVPB 100 ML IV SCH ×4 (00:13→22:42)
[2021-07-23] MEDS: LACTATED RINGERS 1,000 ML IV SCH ×4 (02:03→22:43)
[2021-07-23] MEDS: CIPROFLOXACIN IV 400MG/200ML 200 ML IV SCH ×2 (02:03→15:02)
[2021-07-23 03:42] VITALS: BP 147/83
[2021-07-23 05:40] LABS: BASOPHILS # (AUTO) 0.1 10^3/uL (0.0-0.1); BASOPHILS % (AUTO) 0 % (0-10); EOSINOPHILS # (AUTO) 0.1 10^3/uL (0.0-0.3); EOSINOPHILS % (AUTO) 1 % (0-10); HEMATOCRIT 34 % (40-54); HEMOGLOBIN 11.8 g/dL (13.3-17.7); LYMPHOCYTES # (AUTO) 3.7 10^3/uL (1.0-4.0); LYMPHOCYTES % (AUTO) 22 % (12-44); MEAN CORPUSCULAR HEMOGLOBIN 38 pg (25-34); MEAN CORPUSCULAR HGB CONC 35 g/dL (32-36); MEAN CORPUSCULAR VOLUME 109 fL (80-99); MEAN PLATELET VOLUME 10.1 fL (9.0-12.2); MONOCYTES # (AUTO) 0.7 10^3/uL (0.0-1.0); MONOCYTES % (AUTO) 4 % (0-12); NEUTROPHILS # (AUTO) 11.7 10^3/uL (1.8-7.8); NEUTROPHILS % (AUTO) 70 % (42-75); PLATELET COUNT 275 10^3/uL (130-400); WHITE BLOOD COUNT 16.8 10^3/uL (4.3-11.0)
[2021-07-23 05:54] LABS: BILIRUBIN,TOTAL 1.2 MG/DL (0.1-1.0); CALCIUM 7.8 MG/DL (8.5-10.1); CREATININE SERUM 0.74 MG/DL (0.60-1.30); MAGNESIUM 1.7 MG/DL (1.6-2.4); PHOSPHORUS 1.7 MG/DL (2.3-4.7); POTASSIUM 2.9 MMOL/L (3.6-5.0); TOTAL PROTEIN 5.4 GM/DL (6.4-8.2)
[2021-07-23] MEDS: MAGNESIUM 1 GM/100 ML IVPB 100 ML IV SCH (05:59)
[2021-07-23] MEDS ORDERED: MAGNESIUM 1 GM/100 ML IVPB 100 ML IV SCH (06:00)
[2021-07-23] MEDS ORDERED: POTASSIUM CL 10MEQ/50ML IVPB 50 ML IV SCH (06:00)
[2021-07-23] MEDS ORDERED: KCL 20 MEQ TAB (K-DUR) PO SCH (06:00)
--- NOTE | 2021-07-23 06:05 | Progress Note - Surgery ---
MARTHA BANGURA 07/23/21 0605: Subjective Date Seen by a Provider: Jul 23, 2021 Time Seen by a Provider: 06:00 Subjective/Events-last exam Pt's LLQ pain 10 this morning. States his diarrhea has gotten worse since starting abx (this has happened in the past). He is having diarrhea at least once an hour that is brown liquid. He is nauseous, but has not vomited. CLD; has had jello, a slush, and water. Reports pain/swelling in bilateral ankles. Suspects a gout flare, though he did trip prior to the superbowl and had some swelling then. Is coughing up clear phlegm. Denies CP, SOB, fever, and chills currently. Review of Systems General: No Chills; Malaise HEENT: No Head Aches, No Visual Changes Pulmonary: No Dyspnea; Cough Cardiovascular: No: Chest Pain, Palpitations Gastrointestinal: Nausea, Abdominal Pain, Diarrhea; No: Vomiting, Melena, Hematochezia Genitourinary: No Dysuria; Frequency Musculoskeletal: other (hips ache), foot pain (ankles bilat) Neurological: No: Change in speech, Confusion Focused Exam Respiratory: Lungs Clear, Normal Breath Sounds, No Accessory Muscle Use Cardiovascular: Regular Rate, Rhythm, No Murmur Peripheral Pulses: 2+ Radial Pulses (R), 2+ Radial Pulses (L) Skin: rash (reports chest/neck redness after covid) Objective Exam Vital Signs Date Time Temp Pulse Resp B/P (MAP) Pulse Ox O2 Delivery O2 Flow Rate FiO2 07/23/21 03:42 36.4 105 20 147/83 (104) 95 Room Air 07/23/21 00:42 105 07/23/21 00:12 36.8 113 20 141/74 (96) 94 Room Air 07/22/21 19:55 Room Air 07/22/21 19:40 37.1 115 18 143/72 (95) 96 Room Air 07/22/21 19:39 119 07/22/21 17:20 Room Air 07/22/21 17:15 82 24 158/88 98 07/22/21 12:05 36.2 122 37 175/93 (120) 98 I & O 07/23/21 07:00 Intake Total 2940 ml Balance 2940 ml Capillary Refill : Less Than 3 Seconds General Appearance: No Apparent Distress, WD/WN Respiratory: Lungs Clear, Normal Breath Sounds, No Accessory Muscle Use Cardiovascular: Regular Rate, Rhythm, No Murmur Peripheral Pulses: 2+ Radial Pulses (R), 2+ Radial Pulses (L) Gastrointestinal: distended, tenderness (suprapubic), hernia (umbilical) Extremity: Pedal Edema, Swelling (bilat ankles; Left especially) Neurologic/Psychiatric: Alert, Oriented x3, Normal Mood/Affect Skin: Normal Color, Warm/Dry Results Lab Laboratory Tests 07/22/21 12:20: White Blood Count 20.5H, Red Blood Count 3.66L, Hemoglobin 14.0, Hematocrit 40, Mean Corpuscular Volume 109H, Mean Corpuscular Hemoglobin 38H, Mean Corpuscular Hemoglobin Concent 35, Red Cell Distribution Width 16.3H, Platelet Count 315, Mean Platelet Volume 10.2, Immature Granulocyte % (Auto) 4, Neutrophils (%) (Auto) 69, Lymphocytes (%) (Auto) 24, Monocytes (%) (Auto) 3, Eosinophils (%) (Auto) 1, Basophils (%) (Auto) 0, Neutrophils # (Auto) 14.2H, Lymphocytes # (Auto) 4.8H, Monocytes # (Auto) 0.5, Eosinophils # (Auto) 0.1, Basophils # (Auto) 0.1, Immature Granulocyte # (Auto) 0.8H, Neutrophils % (Manual) 68, Lymphocytes % (Manual) 30, Monocytes % (Manual) 2, Poikilocytosis SLIGHT, Anisocytosis SLIGHT, Macrocytosis MODERATE, Prothrombin Time 14.3, INR Comment 1.1, Activated Partial Thromboplast Time 31, Sodium Level 139, Potassium Level 2.3*L, Chloride Level 98, Carbon Dioxide Level 27, Anion Gap 14, Blood Urea Nitrogen 6L, Creatinine 0.91, Estimat Glomerular Filtration Rate 98, BUN/Creatinine Ratio 7, Glucose Level 178H, Calcium Level 8.6, Corrected Calcium 8.9, Total Bilirubin 1.1H, Aspartate Amino Transf (AST/SGOT) 48H, Alanine Aminotransferase (ALT/SGPT) 21, Alkaline Phosphatase 123, Total Protein 6.7, Albumin 3.6, Serum Alcohol < 10 07/22/21 12:42: Urine Color ORANGE, Urine Clarity SL CLOUDY, Urine pH 6.5, Urine Specific [place] 1.025H, Urine Protein 1+H, Urine Glucose (UA) NEGATIVE, Urine Ketones NEGATIVE, Urine Nitrite POSITIVEH, Urine Bilirubin 1+H, Urine Urobilinogen 4.0, Urine Leukocyte Esterase NEGATIVE, Urine RBC (Auto) NEGATIVE, Urine RBC NONE, Urine WBC RARE, Urine Squamous Epithelial Cells 0-2, Urine Crystals NONE, Urine Bacteria NEGATIVE, Urine Casts NONE, Urine Mucus SMALLH, Urine Culture Indicated NO 07/22/21 18:09: Sodium Level 140, Potassium Level 2.7L, Chloride Level 101, Carbon Dioxide Level 27, Anion Gap 12, Blood Urea Nitrogen 8, Creatinine 0.78, Estimat Glomerular Filtration Rate 103, BUN/Creatinine Ratio 10, Glucose Level 108H, Calcium Level 7.9L, Magnesium Level 1.9 07/23/21 05:28: White Blood Count 16.8H, Red Blood Count 3.11L, Hemoglobin 11.8L, Hematocrit 34L , Mean Corpuscular Volume 109H, Mean Corpuscular Hemoglobin 38H, Mean Corpuscular Hemoglobin Concent 35, Red Cell Distribution Width 16.2H, Platelet Count 275, Mean Platelet Volume 10.1, Immature Granulocyte % (Auto) 4, Neutrophils (%) (Auto) 70, Lymphocytes (%) (Auto) 22, Monocytes (%) (Auto) 4, Eosinophils (%) (Auto) 1, Basophils (%) (Auto) 0, Neutrophils # (Auto) 11.7H, Lymphocytes # (Auto) 3.7, Monocytes # (Auto) 0.7, Eosinophils # (Auto) 0.1, Basophils # (Auto) 0.1, Immature Granulocyte # (Auto) 0.6H, Sodium Level 141, Potassium Level 2.9L, Chloride Level 106, Carbon Dioxide Level 23, Anion Gap 12, Blood Urea Nitrogen 6L, Creatinine 0.74, Estimat Glomerular Filtration Rate 105, BUN/Creatinine Ratio 8, Glucose Level 109H, Calcium Level 7.8L, Corrected Calcium 8.6, Total Bilirubin 1.2H, Aspartate Amino Transf (AST/SGOT) 36H, Alanine Aminotransferase (ALT/SGPT) 16, Alkaline Phosphatase 106, Total Protein 5.4L, Albumin 3.0L, Magnesium Level 1.7, Phosphorus Level 1.7L Assessment/Plan Assessment/Plan Assessment/Plan Acute sigmoid diverticulitis- suprapubic abdominal pain; diarrhea Cholelithiasis - probably just incidental finding and would not do anything about this Alcohol abuse Hx cardiac cath no intervention GERD HTN Hx hemorrhoids Hx gout Hypokalemia- resolved 2.9 Leukocytosis- dec to 16.8 from 20.5 CLD Obtain stool studies IVFs Pain management Consider discontinuing KCl tablet due to nausea; continue IV as needed IV Abx Consider synovial fluid analysis if ankle pain does not improve Monitor labs and vitals LASHANDABUZZ B DO 07/23/21 1420: Subjective Time Seen by a Provider: 11:56 Subjective/Events-last exam Pt seen and examined, his main complaint is the "horrible diarrhea" and now has irritation, "rawness and bleeding" around anus. Tolerating clears. Review of Systems General: No Chills; Malaise Pulmonary: No Dyspnea; Cough Cardiovascular: No: Chest Pain, Palpitations Gastrointestinal: Nausea, Abdominal Pain, Diarrhea; No: Vomiting, Melena, Hematochezia Genitourinary: No Dysuria; Frequency Musculoskeletal: other (hips ache), foot pain (ankles bilat) Objective Exam General Appearance: No Apparent Distress, Obese (very large protuberant abdomen) HEENT: PERRL/EOMI Respiratory: Lungs Clear, Normal Breath Sounds, No Accessory Muscle Use Cardiovascular: No Murmur, Tachycardia Gastrointestinal: distended, tenderness (suprapubic), hernia (umbilical) Extremity: Pedal Edema, Swelling (bilat ankles; Left especially), Other (no real point of tenderness on ankle) Neurologic/Psychiatric: Alert, Oriented x3, Normal Mood/Affect Skin: Normal Color, Warm/Dry Assessment/Plan Assessment/Plan Assessment/Plan Acute sigmoid diverticulitis vs. Colitis- suprapubic abdominal pain; diarrhea. Cholelithiasis - probably just incidental finding and would not do anything about this Alcohol abuse Hx cardiac cath no intervention GERD HTN Hx hemorrhoids Hx gout Hypokalemia- resolved 2.9 Leukocytosis- dec to 16.8 from 20.5 Continue clears, Obtain stool studies, IV Fluids, Pain management Consider discontinuing KCl tablet due to nausea; continue IV as needed IV Abx, Consider synovial fluid analysis if ankle pain does not improve Monitor labs and vitals Supervisory-Addendum Brief Verification & Attestation Participated in pt care: history, MDM, physical Personally performed: exam, history, MDM, supervision of care Care discussed with: Medical Student Procedures: n/a Verification and Attestation of Medical Student E/M Service A medical student performed and documented this service. I then reviewed and verified all information documented by the medical student and made modifications to such information, when appropriate. I personally performed a physical exam, medical decision making and then discussed any differences between the notes and made revisions as necessary to create one note. Buzz Moore , 07/23/21 , 14:20 MARTHA BANGURA Jul 23, 2021 06:05 BUZZ MOORE DO Jul 23, 2021 14:20
[2021-07-23] MEDS: POTASSIUM CL 10MEQ/50ML IVPB 50 ML IV SCH (06:09)
[2021-07-23] MEDS ORDERED: KCL 20 MEQ TAB (K-DUR) PO ONE ×3 (06:15→10:30)
[2021-07-23] MEDS: KCL 20 MEQ TAB (K-DUR) PO SCH (06:25)
[2021-07-23] MEDS: ONDANSETRON 4 MG/2 ML (SDV) Z0FRAN IV PRN ×3 (06:34→17:36)
[2021-07-23 08:00] VITALS: BP 154/95
[2021-07-23] MEDS: NICOTINE 21 MG (NICODERM) PATCH TD SCH (08:40)
[2021-07-23] MEDS: NICOTINE PATCH REMOVAL TP SCH (08:41)
[2021-07-23] MEDS ORDERED: NICOTINE 21 MG (NICODERM) PATCH TD SCH (09:00)
[2021-07-23] MEDS ORDERED: FLUT9.9S NSEACH (10:14)
[2021-07-23 12:00] VITALS: BP 157/88
[2021-07-23] MEDS ORDERED: MICONAZOLE 2% POWDER (DESENEX AF) 90 GM TOP PRN (12:15)
--- NOTE | 2021-07-23 12:20 | History & Physical ---
BRANDIE VIVAR 07/23/21 1220: History of Present Illness History of Present Illness Reason for visit/HPI Pt is a 56yo male w/PMH of HTN and alcohol abuse who presented to ER yesterday with c/o diarrhea occurring multiple times per hour every day for the last 3 weeks or so. He has also experienced excessive gas and abdominal distension. Denies any nausea/vomiting, sweats/chills or fever. He has had some crampy abdominal pain but nothing too severe. He has not traveled recently or had any sick contacts. His appetite has been normal. He states that he drinks anywhere from 4-10 alcoholic beverages per night. Denies any symptoms of withdrawal currently, has not had any alcohol in 36 hours. Date of Admission Jul 22, 2021 at 15:21 Date Seen by a Provider: Jul 23, 2021 Time Seen by a Provider: 09:15 I consulted on this patient on 07/23/21 12:15 Attending Physician Lizzie White MD Admitting Physician No,Local Physician Consult Allergies and Home Medications Allergies Coded Allergies: acetaminophen (Unverified Allergy, Mild, 06/30/09) Uncoded Allergies: MAO INHIBITORS (Allergy, Mild, 06/30/09) Patient Home Medication List Fluticasone Propionate (Flonase Allergy Relief) 9.9 Ml [place].susp, 1-2 SPRAY NSEACH DAILY, (Reported) Entered as Reported by: SIENA MARTÍNEZ on 07/23/21 1014 Last Action: Held Discontinued Medications Alfuzosin Hcl (Uroxatral) 10 Mg Tab.sr.24h, (Reported) Discontinued Reason: No Longer Taking Entered as Reported by: MOHSEN LOVE on 06/30/09 08 Last Action: Discontinued Amox Tr/Potassium Clavulanate (Amox Tr-K Clv 250-62.5/5 Susp) 250 Mg/5 Ml Susp.recon, (Reported) Discontinued Reason: No Longer Taking Entered as Reported by: MOHSEN LOVE on 06/30/09 0835 Last Action: Discontinued Butorphanol Tartrate (Stadol Ns) 10 Mg/Ml Can, (Reported) Discontinued Reason: No Longer Taking Entered as Reported by: MOHSEN LOVE on 06/30/09 0831 Last Action: Discontinued Citalopram Hydrobromide (Celexa) 40 Mg Tablet, (Reported) Discontinued Reason: No Longer Taking Entered as Reported by: MOHSEN LOVE on 06/30/09830 Last Action: Discontinued Cyclobenzaprine Hcl (Cyclobenzaprine Hcl) 10 Mg Tablet, 1 EACH PO Q8HR PRN Discontinued Reason: No Longer Taking Prescribed by: DEXTER VENCES MD on 06/30/09849 Last Action: Discontinued Esomeprazole Mag Trihydrate (Nexium) 40 Mg Capsule., (Reported) Discontinued Reason: No Longer Taking Entered as Reported by: MOHSEN LOVE on 06/30/09831 Last Action: Discontinued Hctz/Valsartan (Diovan Hct 160-25 Mg Tablet) 1 Tab Tablet, (Reported) Discontinued Reason: No Longer Taking Entered as Reported by: MOHSEN LOVE on 06/30/09829 Last Action: Discontinued Hydrocodone Bit/Acetaminophen (Lortab 5-500 Tablet) 1 Each Tablet, 1 EACH PO Q 4 - 6 HR PRN Discontinued Reason: No Longer Taking Prescribed by: DEXTER VENCES MD on 06/30/09849 Last Action: Discontinued Hydrocodone Bit/Ibuprofen (Hydrocodone Bt-Ibuprofen Tab) 1 Tab Tablet, 1 EACH PO Q 4 - 6 HRS PRN Discontinued Reason: No Longer Taking Prescribed by: DEXTER VENCES MD on 06/30/09951 Last Action: Discontinued Hydroxyzine Pamoate (Hydroxyzine Pamoate 50 Mg Cap) 50 Mg Capsule, (Reported) Discontinued Reason: No Longer Taking Entered as Reported by: MOHSEN LOVE on 06/30/09830 Last Action: Discontinued Levetiracetam (Levetiracetam) 500 Mg Tablet, (Reported) Discontinued Reason: No Longer Taking Entered as Reported by: MOHSEN LOVE on 06/30/09828 Last Action: Discontinued [Imitrex] , (Reported) Discontinued Reason: No Longer Taking Entered as Reported by: MOHSEN LOVE on 06/30/09830 Last Action: Discontinued Past Vxrrjqr-Fijxeu-[id number] Hx Patient Social History Tobacco Use?: Yes Tobacco type used: Cigarettes (1.5 PPDx50 years) Smoking Status: Current Everyday Smoker (1.5 pack/day since 7) Smokeless Tobacco Frequency: Never a User Use of E-Cig and/or Vaping dev: No Use of E-Cig and/or Vaping Johnnie: Never a User Substance use?: Yes Substance type: Marijuana Substance frequency: Daily Alcohol Use?: Yes (4-5 kali and coke per day) Alcohol type: Hard Liquor (3-4 drinks per day of kali and coke daily) Alcohol Frequency: Daily Additional Alcohol Comments: 3-4 DRINKS DAILY Pt feels they are or have been: No Immunizations Up To Date First/Initial COVID19 Vaccinat: 2020 Second COVID19 Vaccination Dev[place]: 2020 Seasonal Allergies Seasonal Allergies: Yes Current Status Advance Directives: No Communicates: Verbally Primary Language: Danish Preferred Spoken Language: Danish Is interpretation needed?: No Implanted or Applied Medical D: None Past Medical History Surgeries: Tonsillectomy Currently Using CPAP: No Currently Using BIPAP: No High Cholesterol, Hypertension Headaches /Migraines HIV/AIDS: No Kidney Stones Gastroesophageal Reflux, Polyps Arthritis (hands) Loss of Vision: Denies Hearing Impairment: Denies Blood Disorders: No Family Medical History Heart Disease (dad- CHF) Review of Systems Constitutional: No chills, No diaphoresis Respiratory: No short of breath Gastrointestinal: abdominal pain, diarrhea; No loss of appetite, No nausea, No vomiting Physical Exam Vital Signs Vital Signs - First Documented 07/22/21 07/22/21 12:05 17:20 Temp 36.2 Pulse 122 Resp 37 B/P (MAP) 175/93 (120) Pulse Ox 98 O2 Delivery Room Air Capillary Refill : Less Than 3 Seconds Height, Weight, BMI Height: '" Weight: lbs. oz. kg; 28.28 BMI Method:Stated General Appearance: No Apparent Distress HEENT: PERRL/EOMI Neck: Normal Inspection, Supple Respiratory: Lungs Clear, No Accessory Muscle Use Cardiovascular: Normal Peripheral Pulses, Tachycardia Gastrointestinal: Normal Bowel Sounds, Non Tender, Soft, Distended, Tenderness (mild, bilateral lower quadrants) Extremity: Normal Inspection, Pedal Edema Neurologic/Psychiatric: Alert, Oriented x3, No Motor/Sensory Deficits Skin: Normal Color Assessment/Plan Assessment and Plan Diverticulitis with sepsis Hepatic steatosis Alcohol dependence Anemia Hypokalemia Hypophosphatemia CT Abdomen findings suggestive of acute sigmoid diverticulitis w/o evidence of abscess or obstruction Receiving IV fluids, Cipro and Flagyl [facility] protocol + B12, Folate, Thiamine supplementation Anemia is mild, Hgb 11.8 Awaiting stool culture results, c.diff toxin screen Potassium 2.9 today (up from 2.3 on admit), continue supplementation Continue phosphate supplement DVT ppx: Lovenox Problems: (1) Acute diverticulitis Status: Acute (2) Alcoholism Status: Acute (3) Hypokalemia due to excessive gastrointestinal loss of potassium Status: Acute Admission Diagnosis Acute diverticulitis with sepsis Admission Status: Inpatient Order (span 2 midnights) Reason for Inpatient Admission: IV fluids, abx LIZZIE WHITE MD 07/23/21 4036: History of Present Illness History of Present Illness Time Seen by a Provider: 11:00 Allergies and Home Medications Allergies Coded Allergies: acetaminophen (Unverified Allergy, Mild, 06/30/09) Uncoded Allergies: MAO INHIBITORS (Allergy, Mild, 06/30/09) Patient Home Medication List Home Medication List Reviewed: Yes Fluticasone Propionate (Flonase Allergy Relief) 9.9 Ml [place].susp, 1-2 SPRAY NSEACH DAILY, (Reported) Entered as Reported by: SIENA MARTÍNEZ on 07/23/21 1014 Last Action: Held Discontinued Medications Alfuzosin Hcl (Uroxatral) 10 Mg Tab.sr.24h, (Reported) Discontinued Reason: No Longer Taking Entered as Reported by: MOHSEN LOVE on 06/30/09829 Last Action: Discontinued Amox Tr/Potassium Clavulanate (Amox Tr-K Clv 250-62.5/5 Susp) 250 Mg/5 Ml Susp.recon, (Reported) Discontinued Reason: No Longer Taking Entered as Reported by: MOHSEN LOVE on 06/30/09834 Last Action: Discontinued Butorphanol Tartrate (Stadol Ns) 10 Mg/Ml Can, (Reported) Discontinued Reason: No Longer Taking Entered as Reported by: MOHSEN LOVE on 06/30/09830 Last Action: Discontinued Citalopram Hydrobromide (Celexa) 40 Mg Tablet, (Reported) Discontinued Reason: No Longer Taking Entered as Reported by: MOHSEN LOVE on 06/30/09830 Last Action: Discontinued Cyclobenzaprine Hcl (Cyclobenzaprine Hcl) 10 Mg Tablet, 1 EACH PO Q8HR PRN Discontinued Reason: No Longer Taking Prescribed by: DEXTER VENCES MD on 06/30/09849 Last Action: Discontinued Esomeprazole Mag Trihydrate (Nexium) 40 Mg Capsule., (Reported) Discontinued Reason: No Longer Taking Entered as Reported by: MOHSEN LOVE on 06/30/09831 Last Action: Discontinued Hctz/Valsartan (Diovan Hct 160-25 Mg Tablet) 1 Tab Tablet, (Reported) Discontinued Reason: No Longer Taking Entered as Reported by: MOHSEN LOVE on 06/30/09829 Last Action: Discontinued Hydrocodone Bit/Acetaminophen (Lortab 5-500 Tablet) 1 Each Tablet, 1 EACH PO Q 4 - 6 HR PRN Discontinued Reason: No Longer Taking Prescribed by: DEXTER VENCES MD on 06/30/09849 Last Action: Discontinued Hydrocodone Bit/Ibuprofen (Hydrocodone Bt-Ibuprofen Tab) 1 Tab Tablet, 1 EACH PO Q 4 - 6 HRS PRN Discontinued Reason: No Longer Taking Prescribed by: DEXTER VENCES MD on 06/30/09951 Last Action: Discontinued Hydroxyzine Pamoate (Hydroxyzine Pamoate 50 Mg Cap) 50 Mg Capsule, (Reported) Discontinued Reason: No Longer Taking Entered as Reported by: MOHSEN LOVE on 06/30/09830 Last Action: Discontinued Levetiracetam (Levetiracetam) 500 Mg Tablet, (Reported) Discontinued Reason: No Longer Taking Entered as Reported by: MOHSEN LOVE on 06/30/09828 Last Action: Discontinued [Imitrex] , (Reported) Discontinued Reason: No Longer Taking Entered as Reported by: MOHSEN LOVE on 06/30/09830 Last Action: Discontinued Past Tehghvm-Uvkwzv-Lkleqn Hx Patient Social History Alcohol Use?: Yes Alcohol type: Hard Liquor Alcohol Frequency: Daily Family Medical History No Pertinent Family Hx Assessment/Plan Assessment and Plan Admitted with acute diverticulitis. Started on fluids and antibiotics. Checking stool studies. Monitoring for alcohol withdrawal. Supervisory-Addendum Brief Verification & Attestation Participated in pt care: history, MDM, physical Personally performed: exam, history, MDM, supervision of care Care discussed with: Medical Student Procedures: n/a Results interpretation: Verified all documentation A medical student performed and documented this service in my presence. I reviewed and verified all information documented by the medical student and made modifications to such information, when appropriate. I personally performed the physical exam and medical decision making. BRANDIE VIVAR Jul 23, 2021 12:20 LIZZIE WHITE MD Jul 23, 2021 18:56
[2021-07-23] MEDS ORDERED: 1/2 NS IV SOLUTION 1,000 ML IV PRN ×2 (12:30)
[2021-07-23] MEDS ORDERED: LORazepam INJ 2 MG/ML (ATIVAN) VIAL IV PRN ×2 (12:30)
[2021-07-23] MEDS ORDERED: LORazepam INJ 2 MG/ML (ATIVAN) VIAL IM/IV PRN ×2 (12:30)
[2021-07-23] MEDS ORDERED: D5 1/2 NS 1000 ML IV SOLUTION 1,000 ML IV PRN ×2 (12:30)
[2021-07-23] MEDS ORDERED: LORazepam 1 MG (ATIVAN) TAB PO PRN ×2 (12:30)
[2021-07-23] MEDS: ONDANSETRON 4 MG (ZOFRAN) ORAL DISSOLVE TAB PO PRN (15:10)
[2021-07-23 16:00] VITALS: BP 129/68
[2021-07-23] MEDS: ENOXAPARIN 40 MG/0.4 ML (LOVENOX) SYR SC SCH (17:33)
[2021-07-23 20:00] VITALS: BP 154/87
[2021-07-24] VITALS (7 sets, daily range): BP systolic 146–178; BP diastolic 70–99
[2021-07-24] MEDS: CIPROFLOXACIN IV 400MG/200ML 200 ML IV SCH ×2 (03:17→14:52)
[2021-07-24] MEDS: ONDANSETRON 4 MG/2 ML (SDV) Z0FRAN IV PRN ×3 (03:17→19:29)
--- NOTE | 2021-07-24 05:46 | Progress Note - Surgery ---
MARTHA BANGURA 07/24/21 0546: Subjective Date Seen by a Provider: Jul 24, 2021 Time Seen by a Provider: 05:50 Subjective/Events-last exam Pt reports feeling a little better today. He said he went a couple hours without going to the bathroom, and his stools include formed pieces again. No blood in s tool. His abdominal pain is 6/10 in the LLQ. He is more nauseous this morning, but has not vomited. Says the Zofran does help. His CDiff culture was negative, stool culture still pending. On [facility] protocol, but refused a telesitter. Denies CP, SOB, fever, chills and palpitations currently. Review of Systems General: No Chills; Fatigue HEENT: No Head Aches, No Visual Changes Pulmonary: No Dyspnea; Cough Cardiovascular: No: Chest Pain, Palpitations Gastrointestinal: Nausea, Abdominal Pain, Diarrhea; No: Vomiting, Hematochezia Genitourinary: No Dysuria; Frequency Musculoskeletal: neck pain (aches), foot pain (bilateral ankles) Neurological: Weakness; No: Change in speech, Confusion Focused Exam Respiratory: Lungs Clear, No Accessory Muscle Use, No Respiratory Distress Cardiovascular: No Murmur, Tachycardia Peripheral Pulses: 2+ Radial Pulses (R), 2+ Radial Pulses (L) Skin: normal color, warm/dry Objective Exam Vital Signs Date Time Temp Pulse Resp B/P (MAP) Pulse Ox O2 Delivery O2 Flow Rate FiO2 07/24/21 04:04 36.5 107 20 175/99 (124) 94 Room Air 07/24/21 01:00 101 07/24/21 00:16 36.8 110 20 178/96 (123) 94 Room Air 07/23/21 20:00 Room Air 07/23/21 20:00 36.2 104 20 154/87 (109) 95 Room Air 07/23/21 19:00 113 07/23/21 16:00 36.2 96 18 129/68 (88) 95 Room Air 07/23/21 14:18 98 07/23/21 12:00 35.6 101 20 157/88 (111) 97 Room Air 07/23/21 08:00 Room Air 07/23/21 08:00 36.5 102 18 154/95 (114) 97 Room Air 07/23/21 07:00 102 I & O 3/30/22 07:00 Intake Total 1160 ml Balance 1160 ml Capillary Refill : Less Than 3 Seconds General Appearance: No Apparent Distress, Obese (very large protuberant abdomen) Respiratory: Lungs Clear, Normal Breath Sounds, No Accessory Muscle Use Cardiovascular: No Murmur, Tachycardia Peripheral Pulses: 2+ Radial Pulses (R), 2+ Radial Pulses (L) Gastrointestinal: distended, tenderness (diffuse), hernia (umbilical) Extremity: Pedal Edema, Swelling (bilat ankles; Left especially), Other (no real point of tenderness on ankle) Neurologic/Psychiatric: Alert, Oriented x3, Normal Mood/Affect Skin: Normal Color, Warm/Dry Results Lab Laboratory Tests 07/23/21 14:45: Stool Occult Blood Immunoassay POSITIVEH, Potassium Level 3.2L Microbiology 07/23/21 C. difficile GDH Antigen & Toxins - Final, Resulted 07/23/21 Stool Culture, Resulted Pending Assessment/Plan Assessment/Plan Assessment/Plan Acute sigmoid diverticulitis vs. Colitis- more diffuse abdominal pain; diarrhea. Cholelithiasis - probably just incidental finding and would not do anything about this Alcohol abuse Hx cardiac cath no intervention GERD HTN Hx hemorrhoids Hx gout Hypokalemia- resolved Leukocytosis- labs pending HTN- 175/99 Tachycardia- 107 Continue clears Stool study pending IV Fluids Pain and nausea management KCl as needed IV Abx Consider synovial fluid analysis if ankle pain does not improve Monitor labs and vitals OSCAR MOORE DO 07/24/21 1201: Subjective Time Seen by a Provider: 10:11 Subjective/Events-last exam Pt seen and examined, states the pain is a little better and his stool is becoming more formed. He hates the liquid diet. Review of Systems General: No Chills; Fatigue HEENT: No Head Aches, No Visual Changes Pulmonary: No Dyspnea; Cough Cardiovascular: No: Chest Pain, Palpitations Gastrointestinal: Nausea, Abdominal Pain, Diarrhea; No: Vomiting, Hematochezia Genitourinary: No Dysuria; Frequency Musculoskeletal: neck pain (aches), foot pain (bilateral ankles) Neurological: Weakness Objective Exam General Appearance: No Apparent Distress, Obese (very large protuberant abd omen) Respiratory: Lungs Clear, Normal Breath Sounds, No Accessory Muscle Use, No Respiratory Distress Cardiovascular: No Murmur, Tachycardia Peripheral Pulses: 2+ Radial Pulses (R), 2+ Radial Pulses (L) Gastrointestinal: distended (probable normal for him), tenderness (diffuse, but improved compared to yesterda), hernia (umbilical) Extremity: Pedal Edema, Swelling (bilat ankles; Left especially), Other (no real point of tenderness on ankle) Neurologic/Psychiatric: Alert, Oriented x3, Normal Mood/Affect Skin: Normal Color, Warm/Dry Assessment/Plan Assessment/Plan Assessment/Plan Acute sigmoid diverticulitis vs. Colitis- more diffuse abdominal pain; diarrhea. Cholelithiasis - probably just incidental finding and would not do anything about this Alcohol abuse Hx cardiac cath no intervention GERD HTN Hx hemorrhoids Hx gout Hypokalemia- resolved Leukocytosis- labs pending HTN- 175/99 Tachycardia- 107 Increase to soft diet, Stool study pending but negative for C. Diff so far IV Fluids, Pain and nausea management, IV Abx, Monitor labs and vitals Supervisory-Addendum Brief Verification & Attestation Participated in pt care: history, MDM, physical Personally performed: exam, history, MDM, supervision of care Care discussed with: Medical Student Procedures: n/a Verification and Attestation of Medical Student E/M Service A medical student performed and documented this service. I then reviewed and verified all information documented by the medical student and made modifications to such information, when appropriate. I personally performed a physical exam, medical decision making and then discussed any differences between the notes and made revisions as necessary to create one note. Oscar Moore , 07/24/21 , 12:01 MARTHA BANGURA Jul 24, 2021 05:46 OSCAR MOORE DO Jul 24, 2021 12:01
[2021-07-24] MEDS: metroNIDAZOLE 500MG/100ML IVPB 100 ML IV SCH ×3 (06:09→23:25)
[2021-07-24] MEDS: THIAMINE 100 MG (VITAMIN B-1) TAB PO SCH (06:11)
[2021-07-24] MEDS: MULTIVIT W/MINERALS TAB (THERAGRAN M) PO SCH (06:12)
[2021-07-24] MEDS ORDERED: THIAMINE 100 MG (VITAMIN B-1) TAB PO SCH (07:00)
[2021-07-24] MEDS ORDERED: MULTIVIT W/MINERALS TAB (THERAGRAN M) PO SCH (07:00)
[2021-07-24 07:32] LABS: BASOPHILS % (AUTO) 0 % (0-10); EOSINOPHILS # (AUTO) 0.1 10^3/uL (0.0-0.3); EOSINOPHILS % (AUTO) 1 % (0-10); HEMATOCRIT 34 % (40-54); HEMOGLOBIN 11.7 g/dL (13.3-17.7); LYMPHOCYTES # (AUTO) 3.3 10^3/uL (1.0-4.0); LYMPHOCYTES % (AUTO) 22 % (12-44); MEAN CORPUSCULAR HEMOGLOBIN 39 pg (25-34); MEAN CORPUSCULAR HGB CONC 35 g/dL (32-36); MEAN CORPUSCULAR VOLUME 111 fL (80-99); MONOCYTES # (AUTO) 0.5 10^3/uL (0.0-1.0); MONOCYTES % (AUTO) 3 % (0-12); NEUTROPHILS # (AUTO) 10.5 10^3/uL (1.8-7.8); NEUTROPHILS % (AUTO) 71 % (42-75); PLATELET COUNT 281 10^3/uL (130-400); WHITE BLOOD COUNT 14.9 10^3/uL (4.3-11.0)
[2021-07-24 07:49] LABS: CREATININE SERUM 0.72 MG/DL (0.60-1.30); MAGNESIUM 1.4 MG/DL (1.6-2.4); PHOSPHORUS 1.6 MG/DL (2.3-4.7); POTASSIUM 2.9 MMOL/L (3.6-5.0)
[2021-07-24] MEDS ORDERED: POTASSIUM CL 10MEQ/50ML IVPB 50 ML IV ONE (08:15)
[2021-07-24] MEDS: POTASSIUM CL 10MEQ/50ML IVPB 50 ML IV SCH (08:22)
[2021-07-24] MEDS: MAGNESIUM 1 GM/100 ML IVPB 100 ML IV SCH ×3 (08:22→09:25)
[2021-07-24] MEDS ORDERED: POTASSIUM CL 10MEQ/50ML IVPB 50 ML IV SCH (08:30)
[2021-07-24] MEDS: NICOTINE PATCH REMOVAL TP SCH (08:40)
[2021-07-24] MEDS: KCL 20 MEQ TAB (K-DUR) PO SCH (08:40)
[2021-07-24] MEDS: NICOTINE 21 MG (NICODERM) PATCH TD SCH (08:40)
[2021-07-24] MEDS: LACTATED RINGERS 1,000 ML IV SCH ×3 (08:40→21:46)
[2021-07-24] MEDS: diphenhydrAMINE 25 MG TAB (BENADRYL) PO PRN (08:41)
[2021-07-24] MEDS: FOLIC ACID 1 MG TAB PO SCH (08:41)
[2021-07-24] MEDS ORDERED: KCL 20 MEQ TAB (K-DUR) PO NR ×3 (08:48→12:30)
[2021-07-24] MEDS ORDERED: FOLIC ACID 1 MG TAB PO SCH (09:00)
[2021-07-24] MEDS ORDERED: PATCH REMOVAL TP SCH (09:00)
[2021-07-24] MEDS ORDERED: POTASSIUM PHOSPHATE INJ 15 MM in NS (IVPB) 250 ML IV NR (10:29)
--- NOTE | 2021-07-24 14:33 | Progress Note ---
Subjective Subjective Date Seen by Provider: Jul 24, 2021 Time Seen by Provider: 09:40 Patient reports feeling better this morning. He believes his stool has some form to it now and he is able to go 2+hrs without diarrhea. Denies any N/V, sweats/chills or pain. Review of Systems General: No Chills Gastrointestinal: Diarrhea; No: Nausea, Vomiting All Other Systems Reviewed All Other Systems Reviewed: Yes Objective Exam Vital Signs Vital Signs Date Time Temp Pulse Resp B/P (MAP) Pulse Ox O2 Delivery O2 Flow Rate FiO2 07/24/21 12:00 36.8 102 20 172/95 (120) 96 Room Air 07/24/21 08:00 37.0 108 22 170/92 (118) 96 Room Air 07/24/21 08:00 Room Air 07/24/21 07:00 115 07/24/21 04:04 36.5 107 20 175/99 (124) 94 Room Air 07/24/21 01:00 101 07/24/21 00:16 36.8 110 20 178/96 (123) 94 Room Air 07/23/21 20:00 Room Air 07/23/21 20:00 36.2 104 20 154/87 (109) 95 Room Air 07/23/21 19:00 113 07/23/21 16:00 36.2 96 18 129/68 (88) 95 Room Air I & O 07/24/21 07:00 Intake Total 1310 ml Balance 1310 ml General Appearance: No Apparent Distress, Obese (very large protuberant abdomen) Eyes: Bilateral Eye PERRL, Bilateral Eye EOMI Respiratory: Lungs Clear, No Accessory Muscle Use Cardiovascular: No Murmur, Tachycardia Gastrointestinal: Normal Bowel Sounds, Non Tender, Soft, Distended, Tenderness (mild, bilateral lower quadrants) Extremity: Pedal Edema Neurologic/Psychiatric: Alert, Oriented x3, Normal Mood/Affect Skin: Normal Color, Warm/Dry Results Lab Laboratory Tests 07/23/21 14:45: Stool Occult Blood Immunoassay POSITIVEH, Potassium Level 3.2L 07/24/21 07:15: Potassium Level 2.9L, White Blood Count 14.9H, Red Blood Count 3.04L, Hemoglobin 11.7L, Hematocrit 34L, Mean Corpuscular Volume 111H, Mean Corpuscular Hemoglobin 39H, Mean Corpuscular Hemoglobin Concent 35, Red Cell Distribution Width 16.7H, Platelet Count 281, Mean Platelet Volume 10.0, Immature Granulocyte % (Auto) 3, Neutrophils (%) (Auto) 71, Lymphocytes (%) (Auto) 22, Monocytes (%) (Auto) 3, Eosinophils (%) (Auto) 1, Basophils (%) (Auto) 0, Neutrophils # (Auto) 10.5H, Lymphocytes # (Auto) 3.3, Monocytes # (Auto) 0.5, Eosinophils # (Auto) 0.1, Basophils # (Auto) 0.0, Immature Granulocyte # (Auto) 0.5H, Sodium Level 141, Chloride Level 106, Carbon Dioxide Level 20L, Anion Gap 15H, Blood Urea Nitrogen 4L, Creatinine 0.72, Estimat Glomerular Filtration Rate 106, BUN/Creatinine Ratio 6, Glucose Level 106H, Calcium Level 8.0L, Phosphorus Level 1.6L, Magnesium Level 1.4L Microbiology 07/23/21 C. difficile GDH Antigen & Toxins - Final, Resulted 07/23/21 Stool Culture, Resulted Pending Assessment/Plan Assessment/Plan Assessment and Plan Diverticulitis with sepsis Hepatic steatosis Alcohol dependence Anemia Hypokalemia Hypophosphatemia CT Abdomen findings suggestive of acute sigmoid diverticulitis w/o evidence of abscess or obstruction Pt is improving, will advance to soft diet today and see how he does Continue IV fluids, Cipro and Flagyl CIWA protocol + B12, Folate, Thiamine supplementation Anemia is mild, Hgb 11.8 C. Diff was negative Potassium 2.9 today (up from 2.3 on admit), continue supplementation Continue phosphate supplement DVT ppx: Lovenox Problems: (1) Acute diverticulitis (2) Alcoholism (3) Hypokalemia due to excessive gastrointestinal loss of potassium Admission Dx Acute diverticulitis with sepsis Clinical Quality Measures Admission Status Admission Dx Acute diverticulitis with sepsis Supervisory-Addendum Brief Verification & Attestation Participated in pt care: history, MDM, physical Personally performed: exam, history, MDM, supervision of care Care discussed with: Medical Student Procedures: n/a Results interpretation: Verified all documentation A medical student performed and documented this service in my presence. I reviewed and verified all information documented by the medical student and made modifications to such information, when appropriate. I personally performed the physical exam and medical decision making. BRANDIE VIVAR Jul 24, 2021 14:33 LIZZIE WHITE MD Jul 24, 2021 17:47
[2021-07-24] MEDS: ENOXAPARIN 40 MG/0.4 ML (LOVENOX) SYR SC SCH (17:36)
[2021-07-25] MEDS: ONDANSETRON 4 MG/2 ML (SDV) Z0FRAN IV PRN (03:05)
[2021-07-25] MEDS: CIPROFLOXACIN IV 400MG/200ML 200 ML IV SCH (03:06)
[2021-07-25 04:33] VITALS: BP 155/88
[2021-07-25] MEDS: THIAMINE 100 MG (VITAMIN B-1) TAB PO SCH (06:05)
[2021-07-25] MEDS: MULTIVIT W/MINERALS TAB (THERAGRAN M) PO SCH (06:05)
[2021-07-25] MEDS: metroNIDAZOLE 500MG/100ML IVPB 100 ML IV SCH (06:05)
[2021-07-25 06:27] LABS: BASOPHILS # (AUTO) 0.1 10^3/uL (0.0-0.1); BASOPHILS % (AUTO) 0 % (0-10); EOSINOPHILS # (AUTO) 0.1 10^3/uL (0.0-0.3); EOSINOPHILS % (AUTO) 1 % (0-10); HEMATOCRIT 36 % (40-54); HEMOGLOBIN 12.1 g/dL (13.3-17.7); LYMPHOCYTES # (AUTO) 3.6 10^3/uL (1.0-4.0); LYMPHOCYTES % (AUTO) 26 % (12-44); MEAN CORPUSCULAR HEMOGLOBIN 38 pg (25-34); MEAN CORPUSCULAR HGB CONC 34 g/dL (32-36); MEAN CORPUSCULAR VOLUME 112 fL (80-99); MEAN PLATELET VOLUME 9.6 fL (9.0-12.2); MONOCYTES # (AUTO) 0.5 10^3/uL (0.0-1.0); MONOCYTES % (AUTO) 3 % (0-12); NEUTROPHILS # (AUTO) 9.4 10^3/uL (1.8-7.8); NEUTROPHILS % (AUTO) 67 % (42-75); PLATELET COUNT 264 10^3/uL (130-400); WHITE BLOOD COUNT 13.9 10^3/uL (4.3-11.0)
[2021-07-25 06:41] LABS: CREATININE SERUM 0.76 MG/DL (0.60-1.30); MAGNESIUM 1.8 MG/DL (1.6-2.4); PHOSPHORUS 1.9 MG/DL (2.3-4.7); POTASSIUM 3.4 MMOL/L (3.6-5.0)
[2021-07-25] MEDS: MAGNESIUM 1 GM/100 ML IVPB 100 ML IV SCH (06:47)
[2021-07-25] MEDS: POTASSIUM CL 10MEQ/50ML IVPB 50 ML IV SCH (06:47)
[2021-07-25] MEDS: KCL 20 MEQ TAB (K-DUR) PO SCH (07:19)
[2021-07-25] MEDS ORDERED: KCL 20 MEQ TAB (K-DUR) PO ONE (07:30)
[2021-07-25 07:39] VITALS: BP 155/81
[2021-07-25] MEDS ORDERED: POT PHOS/NA PHOS (K-PHOS NEUTRAL) PO NR (08:00)
[2021-07-25] MEDS: NICOTINE 21 MG (NICODERM) PATCH TD SCH (08:19)
[2021-07-25] MEDS: ONDANSETRON 4 MG (ZOFRAN) ORAL DISSOLVE TAB PO PRN (08:19)
[2021-07-25] MEDS: LACTATED RINGERS 1,000 ML IV SCH (08:43)
[2021-07-25] MEDS: FOLIC ACID 1 MG TAB PO SCH (08:44)
[2021-07-25] MEDS: NICOTINE PATCH REMOVAL TP SCH (08:49)
--- NOTE | 2021-07-25 10:02 | Physical Therapy Progress Note ---
Therapy Progress Note Patient reports he is independent and has no c/o. Patient did ambulate in room independently for PT and performed independent bed mobility and transfers. No skilled PT indicated. Physician notified. 1 visit ([phone]) ANANYA TUCKER PT Jul 25, 2021 10:02
--- NOTE | 2021-07-25 17:05 | Progress Note - Surgery ---
Subjective Time Seen by a Provider: 09:51 Subjective/Events-last exam Pt seen and examined, states pain is better and diarrhea is slowing down. He wants to eat a real diet. He also stated he was going home today. Review of Systems General: No Fatigue, No Malaise Pulmonary: No Dyspnea, No Cough Cardiovascular: No: Chest Pain, Palpitations Gastrointestinal: Abdominal Pain, Diarrhea; No: Nausea, Vomiting Objective Exam Vital Signs Date Time Temp Pulse Resp B/P (MAP) Pulse Ox O2 Delivery O2 Flow Rate FiO2 07/25/21 08:25 Room Air 07/25/21 07:39 36.2 107 18 155/81 (105) 95 Room Air 07/25/21 07:00 108 07/25/21 04:33 36.4 99 18 155/88 (110) 96 Room Air 07/25/21 01:00 99 07/24/21 23:29 36.5 95 16 147/70 (95) 96 Room Air 07/24/21 20:12 Room Air 07/24/21 19:29 35.9 110 18 146/74 (98) 96 Room Air 07/24/21 19:00 104 I & O 07/25/21 07:00 Intake Total 2600 ml Balance 2600 ml Capillary Refill : Less Than 3 Seconds General Appearance: No Apparent Distress, Obese (very large protuberant abdomen) Respiratory: Lungs Clear, Normal Breath Sounds, No Accessory Muscle Use, No Respiratory Distress Cardiovascular: No Murmur, Tachycardia Peripheral Pulses: 2+ Radial Pulses (R), 2+ Radial Pulses (L) Gastrointestinal: soft, distended (probable normal for him), tenderness (diffuse, but improved compared to yesterda), hernia (umbilical) Extremity: Pedal Edema Neurologic/Psychiatric: Alert, Oriented x3, Normal Mood/Affect Skin: Normal Color, Warm/Dry Results Lab Laboratory Tests 07/24/21 17:35: Potassium Level 3.4L 07/25/21 06:15: Potassium Level 3.4L, White Blood Count 13.9H, Red Blood Count 3.21L, Hemoglobin 12.1L, Hematocrit 36L, Mean Corpuscular Volume 112H, Mean Corpuscular Hemoglobin 38H, Mean Corpuscular Hemoglobin Concent 34, Red Cell Distribution Width 16.7H, Platelet Count 264, Mean Platelet Volume 9.6, Immature Granulocyte % (Auto) 2, Neutrophils (%) (Auto) 67, Lymphocytes (%) (Auto) 26, Monocytes (%) (Auto) 3, Eosinophils (%) (Auto) 1, Basophils (%) (Auto) 0, Neutrophils # (Auto) 9.4H, Lymphocytes # (Auto) 3.6, Monocytes # (Auto) 0.5, Eosinophils # (Auto) 0.1, Basophils # (Auto) 0.1, Immature Granulocyte # (Auto) 0.3H, Sodium Level 140, Chloride Level 104, Carbon Dioxide Level 23, Anion Gap 13, Blood Urea Nitrogen 3L, Creatinine 0.76, Estimat Glomerular Filtration Rate 104, BUN/Creatinine Ratio 4, Glucose Level 86, Calcium Level 8.0L, Phosphorus Level 1.9L, Magnesium Level 1.8 Microbiology 07/23/21 Cryptosporidium/Giardia - Final, Complete Assessment/Plan Assessment/Plan Assessment/Plan Diverticulitis vs. Colitis - improving and tolerating diet. Will need colonoscopy as outpt in 6 weeks. Hepatic steatosis Alcohol dependence Anemia Hypokalemia Hypophosphatemia BUZZ PYLE DO Jul 25, 2021 17:05
--- NOTE | 2021-07-25 18:58 | Discharge Summary ---
Discharge Summary Hospital Course Problems/Dx: (1) Acute diverticulitis Status: Acute (2) Alcoholism Status: Acute (3) Hypokalemia due to excessive gastrointestinal loss of potassium Status: Acute Hospital Course Date of Admission: Jul 22, 2021 at 15:21 Admission Diagnosis : Acute diverticulitis Family Physician/Provider: Brinda Zimmerman Physician Date of Discharge: 07/25/21 Discharge Diagnosis: Acute diverticulitis Hospital Course: Sebastián Martinez is a 56 year old male who presented with diarrhea and abdominal pain and was admitted with acute diverticulitis. CT abdomen was consistent with acute diverticulitis. Surgery was consulted and assisted with his care. He was treated with IV fluids, dietary restrictions, and pain medicines. He had stool studies which were negative. His symptoms improved with conservative medical management. He was monitored closely due to reported alcohol abuse but he had no significant alcohol withdrawal. He also had incidental cholelithiasis seen on CT abdomen. He had electrolyte abnormalities which were replaced as needed and improved prior to discharge. He does not have a primary care physician or insurance. He was set up to establish care at the [facility] in [place]. He was discharged home in stable condition. Labs and Pending Lab Test: Laboratory Tests 07/25/21 06:15: White Blood Count 13.9H, Red Blood Count 3.21L, Hemoglobin 12.1L, Hematocrit 36L , Mean Corpuscular Volume 112H, Mean Corpuscular Hemoglobin 38H, Mean Corpuscular Hemoglobin Concent 34, Red Cell Distribution Width 16.7H, Platelet Count 264, Mean Platelet Volume 9.6, Immature Granulocyte % (Auto) 2, Neutrophils (%) (Auto) 67, Lymphocytes (%) (Auto) 26, Monocytes (%) (Auto) 3, Eosinophils (%) (Auto) 1, Basophils (%) (Auto) 0, Neutrophils # (Auto) 9.4H, Lymphocytes # (Auto) 3.6, Monocytes # (Auto) 0.5, Eosinophils # (Auto) 0.1, Basophils # (Auto) 0.1, Immature Granulocyte # (Auto) 0.3H, Sodium Level 140, Potassium Level 3.4L, Chloride Level 104, Carbon Dioxide Level 23, Anion Gap 13, Blood Urea Nitrogen 3L, Creatinine 0.76, Estimat Glomerular Filtration Rate 104, BUN/Creatinine Ratio 4, Glucose Level 86, Calcium Level 8.0L, Phosphorus Level 1.9L, Magnesium Level 1.8 Microbiology 07/23/21 Cryptosporidium/Giardia - Final, Complete Home Meds Active Reported Flonase Allergy Relief (Fluticasone Propionate) 9.[address] [place].susp 1-[address] [place] NSEACH DAILY Assessment/Pt Instructions See instructions Discharge Planning: >30 minutes discharge planning Discharge Instructions Discharge Diet: No Restrictions Activity as Tolerated: Yes Consultations Surgery Discharge Physical Examination Vital Signs Vital Signs Date Time Temp Pulse Resp B/P (MAP) Pulse Ox O2 Delivery O2 Flow Rate FiO2 07/25/21 08:25 Room Air 07/25/21 07:39 36.2 107 18 155/81 (105) 95 General Appearance: No Apparent Distress, WD/WN Respiratory: Lungs Clear, No Respiratory Distress Cardiovascular: Regular Rate, Rhythm, No Murmur Gastrointestinal: Normal Bowel Sounds, Soft Extremity: Normal Inspection, Pedal Edema Skin: Normal Color, Warm/Dry Neurologic/Psychiatric: Alert, Oriented x3, No Motor/Sensory Deficits Allergies: Coded Allergies: acetaminophen (Unverified Allergy, Mild, 06/30/09) Uncoded Allergies: MAO INHIBITORS (Allergy, Mild, 06/30/09) Copy Copies To 1: [facility] [place] Discharge Summary Date of Admission Jul 22, 2021 at 15:21 Date of Discharge Jul 25, 2021 at 11:15 Discharge Date: Jul 25, 2021 Discharge Time: 11:15 Admission Diagnosis Acute diverticulitis Consults/Procedures Consulations Surgery Discharge Diagnosis (1) Acute diverticulitis Status: Acute (2) Alcoholism Status: Acute (3) Hypokalemia due to excessive gastrointestinal loss of potassium Status: Acute LIZZIE WHITE MD Jul 25, 2021 18:58
== END 2021-07-25 11:15 | disposition home or self-care (01) | DRG 872 ==
LOC: EDUNIT# 12:03 → ER 12:04 → 4TH 15:21
PROVIDERS: ADMIT Internal Medicine; ATTEND Internal Medicine
DX: A41.9 Sepsis, unspecified organism (principal); K57.32 Diverticulitis of large intestine without perforation or abscess without bleeding; F10.20 Alcohol dependence, uncomplicated; Y90.0 Blood alcohol level of less than 20 mg/100 ml; E87.6 Hypokalemia; K76.0 Fatty (change of) liver, not elsewhere classified; D64.9 Anemia, unspecified; E83.39 Other disorders of phosphorus metabolism; I10 Essential (primary) hypertension; F17.210 Nicotine dependence, cigarettes, uncomplicated; E78.00 Pure hypercholesterolemia, unspecified; G43.909 Migraine, unspecified, not intractable, without status migrainosus; K21.9 Gastro-esophageal reflux disease without esophagitis; M19.90 Unspecified osteoarthritis, unspecified site; K80.20 Calculus of gallbladder without cholecystitis without obstruction; D72.829 Elevated white blood cell count, unspecified; M10.9 Gout, unspecified
CPT/HCPCS: 36415; 74176; 80048; 80053; 80320; 81000; 82274; 83735; 84100; 84132; 85007; 85025; 85027; 85610; 85730; 87015; 87045; 87046; 87324; 87328; 87329; 87449; 87899; 96361; 96365; 96367

== ENCOUNTER 2021-09-24 16:27 | Emergency (ER) | payer SELFPAY ==
[~2021-09-24] VITALS: Ht 165 cm; Wt 74.3 kg
[~2021-09-24 16:27] MED LIST changes: +FLUT9.9S NSEACH
--- NOTE | 2021-09-24 16:45 | ED General ---
General Chief Complaint: Eye Problems Stated Complaint: RIGHT EYE COMPLICATIONS History of Present Illness Date Seen by Provider: September 24, 2021 Time Seen by Provider: 16:45 Initial Comments 56-year-old male with PMH of alcohol abuse/liver disease/lack of medical care for the past 30 to 40 years, sent here from the clinic with complaints of right eye deviation laterally with blurred vision which began on Thursday. Patient had a headache since last Thursday which lasted for few days prior to the vision disturbances. Pt is wearing an eye patch on the weak eye because he reports that he can see better out of the good eye with the patch, since it helps with the double vision. Patient also noticed his blood pressure to be extremely high so he started taking his mother's blood pressure medication. Patient does not have a PCP that he sees regularly. Patient went to see his opht halmologist today, and ad operations associate sent him to the PCP clinic to get a head CT. PCP then referred the patient to the ER to get a head CT. Patient is an active smoker. Patient does not have good self-care or appropriate health care follow-up. (NAIMA ZHOU MD) Allergies and Home Medications Allergies Coded Allergies: acetaminophen (Unverified Allergy, Mild, 06/30/09) Uncoded Allergies: MAO INHIBITORS (Allergy, Mild, 06/30/09) Patient Home Medication List Home Medication List Reviewed: Yes (NAIMA ZHOU MD) Fluticasone Propionate (Flonase Allergy Relief) 9.9 Ml [place].susp, 1-2 SPRAY NSEACH DAILY, (Reported) Entered as Reported by: SIENA MARTÍNEZ on 07/23/21 1014 Review of Systems Review of Systems Constitutional: no symptoms reported EENTM: blurred vision, double vision Respiratory: no symptoms reported Cardiovascular: no symptoms reported Gastrointestinal: no symptoms reported Genitourinary: no symptoms reported Musculoskeletal: no symptoms reported Skin: no symptoms reported Psychiatric/Neurological: No Symptoms Reported Hematologic/Lymphatic: No Symptoms Reported Immunological/Allergic: no symptoms reported (NAIMA ZHOU MD) Past Gkvbjsp-Dewamp-Mkgzog Hx Immunizations Up To Date Tetanus Booster (TDap): Unknown First/Initial COVID19 Vaccinat: 2020 Second COVID19 Vaccination [place]: 2020 (NAIMA ZHOU MD) Seasonal Allergies Seasonal Allergies: Yes (NAIMA ZHOU MD) Past Medical History Surgery/Hospitalization HX: HEMMORHOID SURGERY Surgeries: Yes (previous colonoscopies) Tonsillectomy Respiratory: No Currently Using CPAP: No Currently Using BIPAP: No Cardiac: Yes High Cholesterol, Hypertension Neurological: Yes Headaches /Migraines Reproductive Disorders: No HIV/AIDS: No Genitourinary: Yes Kidney Stones Gastrointestinal: Yes Gastroesophageal Reflux, Polyps Musculoskeletal: Yes Arthritis Endocrine: No HEENT: No Loss of Vision: Denies Hearing Impairment: Denies Cancer: No Psychosocial: No Integumentary: No Blood Disorders: No (NAIMA ZHOU MD) Family Medical History No Pertinent Family Hx (NAIMA ZHOU MD) Physical Exam Vital Signs Vital Signs - First Documented 09/24/21 16:40 Temp 36.5 Pulse 108 Resp 16 B/P (MAP) 166/100 (122) Pulse Ox 96 O2 Delivery Room Air (ASHLEIGH LONG MD) Vital Signs Capillary Refill : (NAIMA ZHOU MD) Height, Weight, BMI Height: '" Weight: lbs. oz. kg; 28.28 BMI Method:Stated General Appearance: No Apparent Distress Eyes: Right Eye Abnormal EOM (lateral deviation), Right Eye Abnormal Pupil (right side sluggish compared to left side), Right Eye Other (diplopia and hor izontal gaze defect) Neck: Full Range of Motion, Normal Inspection, Non Tender, Supple Respiratory: Lungs Clear Cardiovascular: Regular Rate, Rhythm, No Edema Gastrointestinal: Non Tender, Soft Neurologic/Psychiatric: Alert, Oriented x3, No Motor/Sensory Deficits, Normal Mood/Affect Skin: Normal Color (NAIMA ZHOU MD) Progress/Results/Core Measures Suspected Sepsis SIRS Temperature: Pulse: Respiratory Rate: Laboratory Tests 09/24/21 17:15: White Blood Count 20.5H Blood Pressure / Mean: Laboratory Tests 09/24/21 17:15: Creatinine 0.96, Platelet Count 407H, Total Bilirubin 0.7 (NAIMA ZHOU MD) Results/Orders Lab Results Laboratory Tests Test 09/24/21 17:15 09/24/21 18:02 Range/Units White Blood Count 20.5 H 4.3-11.0 10^3/uL Red Blood Count 3.32 L 4.30-5.52 10^6/uL Hemoglobin 13.0 L 13.3-17.7 g/dL Hematocrit 38 L 40-54 % Mean Corpuscular Volume 113 H 80-99 fL Mean Corpuscular Hemoglobin 39 H 25-34 pg Mean Corpuscular Hemoglobin Concent 35 32-36 g/dL Red Cell Distribution Width 17.0 H 10.0-14.5 % Platelet Count 407 H 130-400 10^3/uL Mean Platelet Volume 9.6 9.0-12.2 fL Immature Granulocyte % (Auto) 3 % Neutrophils (%) (Auto) 69 42-75 % Lymphocytes (%) (Auto) 21 12-44 % Monocytes (%) (Auto) 6 0-12 % Eosinophils (%) (Auto) 1 0-10 % Basophils (%) (Auto) 0 0-10 % Neutrophils # (Auto) 14.2 H 1.8-7.8 10^3/uL Lymphocytes # (Auto) 4.3 H 1.0-4.0 10^3/uL Monocytes # (Auto) 1.2 H 0.0-1.0 10^3/uL Eosinophils # (Auto) 0.2 0.0-0.3 10^3/uL Basophils # (Auto) 0.1 0.0-0.1 10^3/uL Immature Granulocyte # (Auto) 0.5 H 0.0-0.1 10^3/uL Neutrophils % (Manual) 74 % Lymphocytes % (Manual) 18 % Monocytes % (Manual) 8 % Polychromasia MODERATE Stomatocytes MARKED Prothrombin Time 14.9 H 12.2-14.7 SEC INR Comment 1.1 0.8-1.4 Activated Partial Thromboplast Time 32 24-35 SEC D-Dimer 0.48 0.00-0.49 UG/ML Sodium Level 142 135-145 MMOL/L Potassium Level 3.3 L 3.6-5.0 MMOL/L Chloride Level 104 98-107 MMOL/L Carbon Dioxide Level 26 21-32 MMOL/L Anion Gap 12 5-14 MMOL/L Blood Urea Nitrogen 8 7-18 MG/DL Creatinine 0.96 0.60-1.30 MG/DL Estimat Glomerular Filtration Rate 92 BUN/Creatinine Ratio 8 Glucose Level 111 H 70-105 MG/DL Glucometer 122 H 70-110 MG/DL Calcium Level 9.0 8.5-10.1 MG/DL Corrected Calcium 9.2 8.5-10.1 MG/DL Total Bilirubin 0.7 0.1-1.0 MG/DL Aspartate Amino Transf (AST/SGOT) 53 H 5-34 U/L Alanine Aminotransferase (ALT/SGPT) 26 0-55 U/L Alkaline Phosphatase 135 40-136 U/L Troponin I < 0.028 <0.028 NG/ML Total Protein 6.6 6.4-8.2 GM/DL Albumin 3.8 3.2-4.5 GM/DL Urine Color YELLOW Urine Clarity CLEAR Urine pH 6.0 5-9 Urine Specific [place] >=1.030 1.016-1.022 Urine Protein 1+ H NEGATIVE Urine Glucose (UA) NEGATIVE NEGATIVE Urine Ketones NEGATIVE NEGATIVE Urine Nitrite NEGATIVE NEGATIVE Urine Bilirubin 1+ H NEGATIVE Urine Urobilinogen 2.0 < = 1.0 MG/DL Urine Leukocyte Esterase NEGATIVE NEGATIVE Urine RBC (Auto) NEGATIVE NEGATIVE Urine RBC NONE /HPF Urine WBC 0-2 /HPF Urine Squamous Epithelial Cells NONE /HPF Urine Renal Epithelial Cells NONE /HPF Urine Crystals NONE /LPF Urine Bacteria NEGATIVE /HPF Urine Casts NONE /LPF Urine Mucus LARGE H /LPF Urine Culture Indicated NO (ASHLEIGH LONG MD) My Orders Orders - ASHLEIGH LONG MD Promethazine Injection (Phenergan Injec (09/24/21 19:30) Diphenhydramine Injection (Benadryl Inje (09/24/21 19:30) (ASHLEIGH LONG MD) Medications Given in ED Current Medications Medications Dose Ordered Sig/Aditya Route Start Time Stop Time Status Last Admin Dose Admin Diphenhydramine HCl 25 mg ONCE ONCE IVP 09/24/21 19:30 09/24/21 19:31 DC 09/24/21 19:33 25 MG Iohexol 100 ml ONCE ONCE IV 09/24/21 18:45 09/24/21 18:46 DC 09/24/21 18:54 75 ML Promethazine HCl 25 mg ONCE ONCE IVP 09/24/21 19:30 09/24/21 19:31 DC 09/24/21 19:33 25 MG Sodium Chloride 100 ml ONCE ONCE IV 09/24/21 18:45 09/24/21 18:46 DC 09/24/21 18:54 80 ML (ASHLEIGH LONG MD) Vital Signs/I&O 09/24/21 09/24/21 16:40 19:54 Temp 36.5 36.5 Pulse 108 105 Resp 16 17 B/P (MAP) 166/100 (122) 176/106 Pulse Ox 96 96 O2 Delivery Room Air Room Air (ASHLEIGH LONG MD) Vital Signs/I&O Capillary Refill : (NAIMA ZHOU MD) Progress Note : Progress Note 1. VISUAL DEFECT: - CT HEAD WITHOUT CONTRAST: unremarkable - Labs : - EKG - Troponin - Will sign out pt to night physician for follow up of labs and CTA head and neck results (NAIMA ZHOU MD) Progress Note : Progress Note Patient was signed out to me pending the CT/CTA head and neck. This was negative for any acute abnormalities, specifically no aneurysm. I reassessed the patient, and other than the binocular diplopia caused from the right eye with what appears to be a cranial nerve III partial palsy, he has a normal neuro exam. Diplopia is fixed when covering either eye. Given lack of evidence for stroke, aneurysm, or large mass in the brain, I would recommend an MRI brain as an outpatient which I will order for him. I will have him follow-up with ophthalmology (he has an appointment already in roughly 10 days). He was then discharged home in stable condition with strict return precautions. (ASHLEIGH LONG MD) Departure Impression Primary Impression: Diplopia Disposition: 01 HOME, SELF-CARE Condition: Stable Departure-Patient Inst. Decision time for Depature: 19:38 (ASHLEIGH LONG MD) Referrals: NO,LOCAL PHYSICIAN (PCP/Family) Primary Care Physician Patient Instructions: Double Vision (DC) Add. Discharge Instructions: You do have double vision, it is likely caused from a muscle in your eye that is pulling the eye to 1 side. I want you to follow back up with the eye doctor. I also want you to get an MRI as an outpatient of your brain. This has been ordered. If you are seeing normal with the eye patch, it is okay to drive, but if you are still having any type of double vision, do not operate any heavy machinery. Work/School Note: Work Release Form Date Seen in the Emergency Department: September 24, 2021 Return to Work: Sep 26, 2021 Restrictions: No Restrictions NAIMA ZHOU MD September 24, 2021 16:45 ASHLEIGH LONG MD September 24, 2021 19:39
--- NOTE | 2021-09-24 17:13 | Diagnostic Imaging Report ---
PROCEDURE: CT head wo r/o stroke. TECHNIQUE: Multiple contiguous axial images were obtained through the brain without the use of intravenous contrast. Auto Exposure Controls were utilized during the CT exam to meet ALARA standards for radiation dose reduction. INDICATION: Double vision, neuro deficit and headache. COMPARISON: None available. FINDINGS: No hyperdense hemorrhage or space-occupying mass. No hydrocephalus or midline shift. Daniels-white matter differentiation is well preserved. No hyperdense vessel sign. Basilar cisterns are widely patent. No acute calvarial abnormality. Paranasal sinuses and mastoid air cells are clear. IMPRESSION: No acute intracranial process by CT. Dictated by: Dictated on workstation # [id number]
--- NOTE | 2021-09-24 17:14 | Diagnostic Imaging Report ---
CHEST 1 VIEW, AP/PA ONLY Indication: Neuro deficit, visual disturbance Comparison: CT abdomen pelvis from 07/22/2021 Findings: No focal airspace disease in the visualized lungs. Stable calcified granuloma in the left lung base. Please note that the posterior lower lobes are poorly evaluated by portable radiography. No pleural effusion or pneumothorax. Normal cardiomediastinal silhouette. Impression: 1. No acute cardiopulmonary process by portable radiography. Dictated by: Dictated on workstation # [id number]
[2021-09-24 17:22] LABS: BASOPHILS # (AUTO) 0.1 10^3/uL (0.0-0.1); BASOPHILS % (AUTO) 0 % (0-10); EOSINOPHILS # (AUTO) 0.2 10^3/uL (0.0-0.3); EOSINOPHILS % (AUTO) 1 % (0-10); HEMATOCRIT 38 % (40-54); LYMPHOCYTES # (AUTO) 4.3 10^3/uL (1.0-4.0); LYMPHOCYTES % (AUTO) 21 % (12-44); MEAN CORPUSCULAR HEMOGLOBIN 39 pg (25-34); MEAN CORPUSCULAR HGB CONC 35 g/dL (32-36); MEAN CORPUSCULAR VOLUME 113 fL (80-99); MEAN PLATELET VOLUME 9.6 fL (9.0-12.2); MONOCYTES # (AUTO) 1.2 10^3/uL (0.0-1.0); MONOCYTES % (AUTO) 6 % (0-12); NEUTROPHILS # (AUTO) 14.2 10^3/uL (1.8-7.8); NEUTROPHILS % (AUTO) 69 % (42-75); PLATELET COUNT 407 10^3/uL (130-400); WHITE BLOOD COUNT 20.5 10^3/uL (4.3-11.0)
[2021-09-24 17:36] LABS: LYMPHOCYTES % (MANUAL) 18 %; MONOCYTES % (MANUAL) 8 %; NEUTROPHILS % (MANUAL) 74 %; POLYCHROMASIA MODERATE; STOMATOCYTES MARKED
[2021-09-24 17:40] LABS: ALBUMIN 3.8 GM/DL (3.2-4.5); CHLORIDE 104 MMOL/L (98-107); POTASSIUM 3.3 MMOL/L (3.6-5.0); SODIUM 142 MMOL/L (135-145)
[2021-09-24 17:42] LABS: GLUCOSE 111 MG/DL (70-105); TOTAL PROTEIN 6.6 GM/DL (6.4-8.2)
[2021-09-24 17:44] LABS: BILIRUBIN,TOTAL 0.7 MG/DL (0.1-1.0); CARBON DIOXIDE 26 MMOL/L (21-32)
[2021-09-24 17:46] LABS: ALKALINE PHOSPHATASE 135 U/L (40-136); CREATININE SERUM 0.96 MG/DL (0.60-1.30); GFR ESTIMATED 92
[2021-09-24 17:47] LABS: BUN/CREATININE RATIO 8; FIBRIN DEGRADATION PRODUCTS 0.48 UG/ML (0.00-0.49); INR 1.1 (0.8-1.4); PROTHROMBIN TIME PATIENT 14.9 SEC (12.2-14.7)
[2021-09-24 17:49] LABS: ALANINE AMINOTRANSFERASE 26 U/L (0-55)
[2021-09-24 18:08] LABS: BILIRUBIN,URINE 1+ (NEGATIVE); CLARITY,URINE CLEAR; COLOR,URINE YELLOW; GLUCOSE, URINE (UA) NEGATIVE (NEGATIVE); KETONES,URINE NEGATIVE (NEGATIVE); LEUKOCYTE ESTERASE ,URINE NEGATIVE (NEGATIVE); NITRITE,URINE NEGATIVE (NEGATIVE); PROTEIN,URINE 1+ (NEGATIVE)
[2021-09-24 18:32] LABS: BACTERIA,URINE NEGATIVE /HPF; WBC,URINE 0-2 /HPF
[2021-09-24] MEDS ORDERED: NS 100 ML (IVPB) BAG IV ONE (18:45)
[2021-09-24] MEDS ORDERED: IOHEXOL 350 MG/ML 100 ML (OMNIPAQUE 350) VIAL IV ONE (18:45)
--- NOTE | 2021-09-24 19:22 | Diagnostic Imaging Report ---
PROCEDURE: CT angiography of the head and CT angiography of the neck with and without contrast. TECHNIQUE: Contiguous noncontrast images were obtained from the skull base through the vertex. After intravenous contrast administration, helical CT angiography of the neck was performed. Source data was reformatted into 3D MIP projections. Delayed post contrast acquisition was also obtained. Auto Exposure Controls were utilized during the CT exam to meet ALARA standards for radiation dose reduction. INDICATION: Diplopia. COMPARISON: Noncontrast head from earlier same day FINDINGS: Aortic arch is normal in caliber without dissection. Great vessels of the aortic arch are widely patent centrally. The bilateral common carotid arteries are normal. Atherosclerotic plaquing in the proximal ICA results in approximately 50% stenosis per NASCET criteria. No stenosis of the left ICA. The cervical divisions of the internal carotid arteries are patent without dissection. Vertebral arteries are widely patent at their origin. The vertebral arteries are codominant and have no stenosis or dissection within the neck. Intracranial segments of the vertebral arteries are widely patent. No cervical lymphadenopathy. Lung apices are clear. Thyroid is normal. The bilateral distal internal carotid arteries are patent without terminal aneurysm. The M1 and M2 divisions of the middle cerebral arteries are widely patent. Anterior cerebral arteries are patent without aneurysm in the anterior communicate artery. Basilar artery is widely patent. No saccular aneurysm in the basilar artery or posterior communicating arteries. Posterior cerebral arteries are patent without stenosis. Dural venous sinuses are patent. No pathologic enhancement on delayed phase imaging. IMPRESSION: 1. No intracranial large vessel occlusion or saccular aneurysm. Specifically, there is no aneurysm around the brainstem that would result in mass effect on the cranial nerves. 2. No high-grade stenosis or occlusion within the major neck arteries. Vertebrobasilar system is widely patent. Dictated by: Dictated on workstation # [id number]
[2021-09-24] MEDS ORDERED: diphenhydrAMINE 50 MG/ML INJ (BENADRYL) IVP ONE (19:30)
[2021-09-24] MEDS ORDERED: PROMETHAZINE INJ 25 MG/ML (PHENERGAN) AMP IVP ONE (19:30)
[2021-09-24 19:54] VITALS: BP 176/106
== END 2021-09-24 19:53 | disposition home or self-care (01) ==
LOC: EDUNIT# 16:27 → ER 16:30
DX: H53.2 Diplopia (principal)
CPT/HCPCS: 36415; 70450; 70496; 70498; 71045; 80053; 81000; 82947; 84484; 85007; 85027; 85379; 85610; 85730; 93005; 93041

== ENCOUNTER 2022-08-28 17:46 | Emergency (ER) | payer SELFPAY ==
[~2022-08-28] VITALS: Ht 165.5 cm; Wt 74.3 kg
--- NOTE | 2022-08-28 18:28 | ED General ---
General Chief Complaint: General Problems/Pain Stated Complaint: POS STROKE|ANS Source of Information: Patient Exam Limitations: No Limitations History of Present Illness Date Seen by Provider: August 28, 2022 Time Seen by Provider: 18:12 Initial Comments Patient is a 57-year-old male who presents to the emergency room, brought by his daughter for concern of possible urinary tract infection. Patient states that his daughter thought that he was acting confused. Patient relates recent past medical history of CVA in June. He states he was seen in [facility]. He recently left rehab AGAINST MEDICAL ADVICE last Thursday from [facility]. He states he was supposed to be in there to rehab not lay around in bed and . He states they really did not do anything for him. He does admit to being an alcoholic drinking daily "as much as I can". He states his last alcohol was yesterday. He relates that he was going to the bathroom yesterday and missed the toilet seat and had a fall hitting his left ribs. He did not hit his head or have a loss of consciousness. He has had rib pain since that time. No fevers, chills, productive cough. No abdominal pain, nausea, vomiting or diarrhea. He endorses urinary hesitancy, believes that he has significant prostate issues. He has felt constipated but had a bowel movement yesterday. Patient states that his stroke affected his left upper and lower extremities. They feel tingly and a little weak. No changes today. He also states that he had some visual field loss related to the stroke. Left lower visual field. Has not eaten today. He insists he is going to be able to get back to driving and to work. 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 Timing/Duration: Other (unsure) Associated Systoms: Chest Pain (left rib pain after afll yesterday), Malaise Allergies and Home Medications Allergies Coded Allergies: acetaminophen (Unverified Allergy, Mild, 06/30/09) Uncoded Allergies: MAO INHIBITORS (Allergy, Mild, 06/30/09) Patient Home Medication List Home Medication List Reviewed: Yes Fluticasone Propionate (Flonase Allergy Relief) 9.9 Ml [place].susp, 1-2 SPRAY NSEACH DAILY, (Reported) Entered as Reported by: SIENA MARTÍNEZ on 07/23/21 1014 Tamsulosin HCl (Flomax) 0.4 Mg Cap, 0.4 MG PO HS Prescribed by: ANUJ GARCIA on 08/28/22 8532 Review of Systems Review of Systems Constitutional: see HPI EENTM: vision loss (left eye - (from stroke)) Respiratory: no symptoms reported Cardiovascular: other (rib pain) Gastrointestinal: no symptoms reported Genitourinary: decreased output (today) Musculoskeletal: no symptoms reported Skin: no symptoms reported Psychiatric/Neurological: Paresthesia (LUE/LLE), Pre-Existing Deficit Past Hmtacpt-Dvqdlq-Pvyfci Hx Patient Social History Tobacco Use?: Yes Tobacco type used: Cigarettes Smoking Status: Current Everyday Smoker Use of E-Cig and/or Vaping dev: No Substance type: Marijuana Alcohol Use?: No Pt feels they are or have been: No Immunizations Up To Date Tetanus Booster (TDap): Unknown Influenza Vaccine Up-to-Date: No; Not Current First/Initial COVID19 Vaccinat: 2020 Second COVID19 Vaccination Deven: 2020 COVID19 Vaccine Production Assistant: NAKIA Seasonal Allergies Seasonal Allergies: Yes Past Medical History Surgery/Hospitalization HX: HEMMORHOID SURGERY, DENTAL SURGERY, TONSILS HTN, HIGH CHOLESTEROL, COPD Surgeries: Yes (previous colonoscopies) Tonsillectomy Respiratory: No Currently Using CPAP: No Currently Using BIPAP: No Cardiac: Yes High Cholesterol, Hypertension Neurological: Yes Headaches /Migraines Reproductive Disorders: No HIV/AIDS: No Genitourinary: Yes Kidney Stones Gastrointestinal: Yes Gastroesophageal Reflux, Polyps Musculoskeletal: Yes Arthritis Endocrine: No HEENT: No Loss of Vision: Denies Hearing Impairment: Denies Cancer: No Psychosocial: No Integumentary: No Blood Disorders: No Family Medical History No Pertinent Family Hx Physical Exam Vital Signs Vital Signs - First Documented 08/28/22 08/28/22 17:51 19:05 Temp 35.6 Pulse 86 Resp 16 B/P (MAP) 147/95 (112) Pulse Ox 95 O2 Delivery Room Air O2 Flow Rate 2.00 Capillary Refill : Height, Weight, BMI Height: '" Weight: lbs. oz. kg; 27.00 BMI Method:Stated General Appearance: No Apparent Distress, Chronically ill Eyes: Bilateral Eye Normal Inspection, Bilateral Eye PERRL, Bilateral Eye EOMI HEENT: PERRL/EOMI, Pharynx Normal Neck: Supple Respiratory: Lungs Clear, Normal Breath Sounds, No Accessory Muscle Use, No Respiratory Distress Cardiovascular: Regular Rate, Rhythm, Normal Peripheral Pulses Gastrointestinal: Soft, Distended, Hepatomegaly (Liver margin 2-3 fb below right costal margin) Extremity: Normal Inspection, Normal Range of Motion Neurologic/Psychiatric: Alert, Oriented x3, Normal Mood/Affect, psych specialist II-XII Norm as Tested, Other ((seems to be a little slurred) passed dysphagia screen) Skin: Warm/Dry, Jaundice (slight) Progress/Results/Core Measures Suspected Sepsis SIRS Temperature: Pulse: Respiratory Rate: Laboratory Tests 08/28/22 17:55: White Blood Count 14.2H Blood Pressure / Mean: Laboratory Tests 08/28/22 17:55: Creatinine 0.87, Platelet Count 285, Total Bilirubin 0.8 Results/Orders Lab Results Laboratory Tests Test 08/28/22 17:55 08/28/22 17:56 08/28/22 18:43 08/28/22 22:09 Range/Units White Blood Count 14.2 H 4.3-11.0 10^3/uL Red Blood Count 4.50 4.30-5.52 10^6/uL Hemoglobin 14.5 13.3-17.7 g/dL Hematocrit 43 40-54 % Mean Corpuscular Volume 95 80-99 fL Mean Corpuscular Hemoglobin 32 25-34 pg Mean Corpuscular Hemoglobin Concent 34 32-36 g/dL Red Cell Distribution Width 13.7 10.0-14.5 % Platelet Count 285 130-400 10^3/uL Mean Platelet Volume 11.1 9.0-12.2 fL Immature Granulocyte % (Auto) 0 % Neutrophils (%) (Auto) 70 42-75 % Lymphocytes (%) (Auto) 21 12-44 % Monocytes (%) (Auto) 7 0-12 % Eosinophils (%) (Auto) 1 0-10 % Basophils (%) (Auto) 1 0-10 % Neutrophils # (Auto) 9.9 H 1.8-7.8 10^3/uL Lymphocytes # (Auto) 3.0 1.0-4.0 10^3/uL Monocytes # (Auto) 1.0 0.0-1.0 10^3/uL Eosinophils # (Auto) 0.2 0.0-0.3 10^3/uL Basophils # (Auto) 0.1 0.0-0.1 10^3/uL Immature Granulocyte # (Auto) 0.1 0.0-0.1 10^3/uL Neutrophils % (Manual) 64 % Lymphocytes % (Manual) 27 % Monocytes % (Manual) 9 % Blood Morphology Comment NORMAL Sodium Level 143 135-145 MMOL/L Potassium Level 3.4 L 3.6-5.0 MMOL/L Chloride Level 107 98-107 MMOL/L Carbon Dioxide Level 22 21-32 MMOL/L Anion Gap 14 5-14 MMOL/L Blood Urea Nitrogen 15 7-18 MG/DL Creatinine 0.87 0.60-1.30 MG/DL Estimat Glomerular Filtration Rate 99 BUN/Creatinine Ratio 17 Glucose Level 100 70-105 MG/DL Calcium Level 10.0 8.5-10.1 MG/DL Corrected Calcium 8.5-10.1 MG/DL Total Bilirubin 0.8 0.1-1.0 MG/DL Aspartate Amino Transf (AST/SGOT) 31 5-34 U/L Alanine Aminotransferase (ALT/SGPT) 20 0-55 U/L Alkaline Phosphatase 116 40-136 U/L Total Protein 8.2 6.4-8.2 GM/DL Albumin 4.6 H 3.2-4.5 GM/DL Salicylates Level < 5.0 L 5.0-20.0 MG/DL Acetaminophen Level < 10 L 10-30 UG/ML Serum Alcohol < 10 <10 MG/DL Glucometer 97 70-110 MG/DL Ammonia 30 11-32 UMOL/L Urine Color YELLOW Urine Clarity CLEAR Urine pH 6.0 5-9 Urine Specific [place] 1.025 H 1.016-1.022 Urine Protein 1+ H NEGATIVE Urine Glucose (UA) NEGATIVE NEGATIVE Urine Ketones TRACE H NEGATIVE Urine Nitrite NEGATIVE NEGATIVE Urine Bilirubin NEGATIVE NEGATIVE Urine Urobilinogen 0.2 < = 1.0 MG/DL Urine Leukocyte Esterase NEGATIVE NEGATIVE Urine RBC (Auto) TRACE-I H NEGATIVE Urine RBC 2-5 H /HPF Urine WBC NONE /HPF Urine Squamous Epithelial Cells NONE /HPF Urine Crystals PRESENT H /LPF Urine Amorphous Sediment FEW SHANI URATES H /LPF Urine Bacteria TRACE /HPF Urine Casts PRESENT /LPF Urine Hyaline Casts 2-5 H /LPF Urine Mucus MODERATE H /LPF Urine Culture Indicated NO Urine Opiates Screen NEGATIVE NEGATIVE Urine Oxycodone Screen NEGATIVE NEGATIVE Urine Methadone Screen NEGATIVE NEGATIVE Urine Propoxyphene Screen NEGATIVE NEGATIVE Urine Barbiturates Screen NEGATIVE NEGATIVE Ur Tricyclic Antidepressants Screen NEGATIVE NEGATIVE Urine Phencyclidine Screen NEGATIVE NEGATIVE Urine Amphetamines Screen POSITIVE H NEGATIVE Urine Methamphetamines Screen POSITIVE H NEGATIVE Urine Benzodiazepines Screen POSITIVE H NEGATIVE Urine Cocaine Screen NEGATIVE NEGATIVE Urine Cannabinoids Screen POSITIVE H NEGATIVE My Orders Orders - ANUJ GARCIA MD Ed Iv/Invasive Line Start (08/28/22 18:28) Cbc With Automated Diff (08/28/22 18:28) Comprehensive Metabolic Panel (08/28/22 18:28) Alcohol (08/28/22 18:28) Salicylate (08/28/22 18:28) Acetaminophen (08/28/22 18:28) Drug Screen Stat (Urine) (08/28/22 18:28) Ua Culture If Indicated (08/28/22 18:28) Ekg Tracing (08/28/22 18:28) Ammonia (08/28/22 18:32) Manual Differential (08/28/22 17:55) Chest 1 View, Ap/Pa Only (08/28/22 19:09) Ns Iv 1000 Ml (Sodium Chloride 0.9%) (08/28/22 20:30) Tamsulosin Capsule (Flomax Capsule) (08/28/22 22:44) Vital Signs/I&O 08/28/22 08/28/22 08/28/22 17:51 19:05 22:57 Temp 35.6 Pulse 86 98 Resp 16 B/P (MAP) 147/95 (112) 141/88 Pulse Ox 95 94 93 O2 Delivery Room Air Nasal Cannula Room Air O2 Flow Rate 2.00 08/29/22 00:00 Intake Total 1000 ml Balance 1000 ml Capillary Refill : Progress Note #1: Time: 21:28 Progress Note Patient has been trying to provide a urine sample for quite a while now. He has been unable to void. Bladder scan reveals 382ml in the bladder - or thereabouts . Patient adamantly declines catheterization. He remains awake, with no complaints. VSS. Attempting to void into a urinal at this time. Daughter has been upset that he has not allowed her back into the ED. He does not want her in here. He is oriented and is competent at this time to make his own medical decisions, I do not believe her DPOA is applicable at this time. SHe does not have guardianship and therefore we will honor his wishes. Progress Note #2: Time: 22:44 Progress Note Patient seen and evaluated by me. Evaluation today includes physical exam, CBC, Chem-12, ammonia level. Patient had alcohol aspirin and acetaminophen levels drawn as well as urine drug screen and urinalysis. Chest x-ray also performed. EKG obtained. Physical exam pertinent for elderly appearing male in no acute distress, disheveled, dirty and unkempt. Awake alert and oriented x3. Does seem to have slightly slurred speech. HEENT exam is relatively unremarkable. Heart is regular, lungs are clear abdomen is soft with palpable hepatomegaly as the liver margin is approximately 3 fingerbreadths below the right costal margin. Bowel sounds are present. Moves all extremities equally. He does have slight weakness to the left side which the patient states is as a result of his stroke approximately 2 months ago. Patient is currently without any complaints whatsoever. Differential diagnosis based on history and physical exam, alcohol intoxication, occult infection. Independent evaluation of the chest x-ray by me shows no significant focal infiltrate however radiology dictated on their read mild interstitial opacities in the right lung base concerning for atelectasis versus developing pneumonia. Labs reviewed by me shows CBC with a white count of 14.2, normal hemoglobin, hematocrit and platelet count. Chem-12 remarkable for potassium of 3.4. His glucose is 100. Ammonia is 30. Alcohol aspirin and acetaminophen are undetectable. His urine drug screen is positive for methamphetamine, amphetamine, benzos and THC. Urinalysis shows a specific gravity of 1.025 with 1+ protein and trace ketones. 2-5 RBCs on microscopy with trace bacteria. Urine is not flagged for culture. EKG showed normal sinus rhythm without ectopy or ST segment change. Patient is treated in the emergency department with a liter of IV fluids. He has no deterioration throughout his stay in the ED. He struggled with being able to produce a urine specimen as he states he has a history of prostate enlargement. Was finally able to produce 1, had refused straight cath. Patient has no clinical or objective findings concerning for new acute stroke. He has no complaints of new or increasing weakness, numbness. He does not have altered mental status. He appears, at this visit to be competent to make his own medical decisions. He did not want his daughter to be brought back into the room with him. I did not have any conversations with her. I reviewed all of his lab findings and chest x-ray and EKG findings with the werner storey. He would like to be discharged home. I have strongly encouraged him to follow-up with primary care. I did ask him about methamphetamine use, he states that he has not used in 20 years. Patient is given return precautions to include any worsening, fever, shortness of breath or severe headache, advised to come back to the emergency department. He is comfortable with the plan of care. All questions are sought and answered. Patient is stable for discharge. ECG Initial ECG Impression Date: August 28, 2022 Initial ECG Impression Time: 18:47 Initial ECG Rate: 88 Initial ECG Rhythm: Normal Sinus Initial ECG Intervals WA 162 QRS 110 QTc 426 Initial ECG Impression: Nonspecific Changes Diagnostic Imaging Diagonstic Imaging: Xray Plain Films/CT/US/NM/MRI: chest Comments [facility], [place] NAME: SHRUTHI GUIDO MED REC#: [id number] PT STATUS: REG ER : 1965 PHYSICIAN: ANUJ GARCIA MD ADMIT DATE: 08/28/22/ER Signed Date of Exam:08/28/22 CHEST 1 VIEW, AP/PA ONLY EXAMINATION: Chest 1 view HISTORY: weakness, low oxygen COMPARISON: 09/24/2021 FINDINGS: Heart size and pulmonary vasculature are normal. Mild interstitial opacities within the right lung base. Stable left lower lobe nodular density compared to prior exam. No pleural effusion or pneumothorax. The osseous structures are intact. IMPRESSION: 1. Mild interstitial opacities in the right lung base which could be seen with atelectasis, edema, or pneumonia. Dictated by: Dictated on workstation # [id number] Dict: 08/28/221933 Trans: 08/28/221946 CV [id number] Interpreted by: SAM ALONZO DO Electronically signed by: SAM ALONZO DO 08/28/221946 Counseling-Asymptomatic: 3-10 minutes Follow-up with PCP to: Discuss Further Options Departure Impression Primary Impression: Weakness Additional Impression: Rib pain on left side Disposition: 01 HOME, SELF-CARE Condition: Stable Departure-Patient Inst. Decision time for Depature: 22:43 Referrals: [facility] (PCP/Family) Primary Care Physician Patient Instructions: Generalized Weakness Add. Discharge Instructions: Drink plenty of fluids to stay well hydrated (try and lay off the alcohol). Continue your daily medications as prescribed. Start the FLOMAX 0.4mg nightly to help with urine flow. Call Count Includes [facility] tomorrow for a follow up appointment early next week. If you have any concerning symptoms, severe headache, chest pain, loss of bowel or bladder control, high fever - return to the Emergency Department for re- evaluation. Scripts Tamsulosin HCl (Flomax) 0.4 Mg Cap 0.4 MG PO HS for 30 Days, #30 CAP Prov: ANUJ GARCIA MD 08/28/22 Copy Copies To 1: ALCIRA FRAUSTO KATHRYN M MD August 28, 2022 18:28
[2022-08-28 18:38] LABS: ALBUMIN 4.6 GM/DL (3.2-4.5); BASOPHILS # (AUTO) 0.1 10^3/uL (0.0-0.1); BASOPHILS % (AUTO) 1 % (0-10); CHLORIDE 107 MMOL/L (98-107); EOSINOPHILS # (AUTO) 0.2 10^3/uL (0.0-0.3); EOSINOPHILS % (AUTO) 1 % (0-10); HEMATOCRIT 43 % (40-54); HEMOGLOBIN 14.5 g/dL (13.3-17.7); LYMPHOCYTES % (AUTO) 21 % (12-44); MEAN CORPUSCULAR HEMOGLOBIN 32 pg (25-34); MEAN CORPUSCULAR HGB CONC 34 g/dL (32-36); MEAN CORPUSCULAR VOLUME 95 fL (80-99); MEAN PLATELET VOLUME 11.1 fL (9.0-12.2); MONOCYTES % (AUTO) 7 % (0-12); NEUTROPHILS # (AUTO) 9.9 10^3/uL (1.8-7.8); NEUTROPHILS % (AUTO) 70 % (42-75); PLATELET COUNT 285 10^3/uL (130-400); POTASSIUM 3.4 MMOL/L (3.6-5.0); SODIUM 143 MMOL/L (135-145); WHITE BLOOD COUNT 14.2 10^3/uL (4.3-11.0)
[2022-08-28 18:41] LABS: GLUCOSE 100 MG/DL (70-105); TOTAL PROTEIN 8.2 GM/DL (6.4-8.2)
[2022-08-28 18:42] LABS: CARBON DIOXIDE 22 MMOL/L (21-32)
[2022-08-28 18:43] LABS: BILIRUBIN,TOTAL 0.8 MG/DL (0.1-1.0)
[2022-08-28 18:45] LABS: ALKALINE PHOSPHATASE 116 U/L (40-136); CREATININE SERUM 0.87 MG/DL (0.60-1.30); GFR ESTIMATED 99
[2022-08-28 18:46] LABS: BUN/CREATININE RATIO 17
[2022-08-28 18:47] LABS: SALICYLATE < 5.0 MG/DL (5.0-20.0)
[2022-08-28 18:48] LABS: ALANINE AMINOTRANSFERASE 20 U/L (0-55)
[2022-08-28 18:51] LABS: ACETAMINOPHEN < 10 UG/ML (10-30)
[2022-08-28 18:52] LABS: LYMPHOCYTES % (MANUAL) 27 %; MONOCYTES % (MANUAL) 9 %; NEUTROPHILS % (MANUAL) 64 %; RBC MORPH NORMAL
--- NOTE | 2022-08-28 19:38 | Diagnostic Imaging Report ---
EXAMINATION: Chest 1 view HISTORY: weakness, low oxygen COMPARISON: 09/24/2021 FINDINGS: Heart size and pulmonary vasculature are normal. Mild interstitial opacities within the right lung base. Stable left lower lobe nodular density compared to prior exam. No pleural effusion or pneumothorax. The osseous structures are intact. IMPRESSION: 1. Mild interstitial opacities in the right lung base which could be seen with atelectasis, edema, or pneumonia. Dictated by: Dictated on workstation # [id number]
[2022-08-28] MEDS ORDERED: NS IV 1000 ML 1,000 ML IV SCH (20:30)
[2022-08-28 22:15] LABS: BILIRUBIN,URINE NEGATIVE (NEGATIVE); CLARITY,URINE CLEAR; COLOR,URINE YELLOW; GLUCOSE, URINE (UA) NEGATIVE (NEGATIVE); KETONES,URINE TRACE (NEGATIVE); LEUKOCYTE ESTERASE ,URINE NEGATIVE (NEGATIVE); NITRITE,URINE NEGATIVE (NEGATIVE); PROTEIN,URINE 1+ (NEGATIVE)
[2022-08-28 22:25] LABS: AMORPHOUS SEDIMENT,UR FEW AMOR URATES /LPF; BACTERIA,URINE TRACE /HPF
[2022-08-28 22:29] LABS: AMPHETAMINE SCREEN, URINE POSITIVE (NEGATIVE); BARBITURATE SCREEN URINE NEGATIVE (NEGATIVE); BENZODIAZEPINES SCREEN URINE POSITIVE (NEGATIVE); CANNABINOID SCREEN, URINE POSITIVE (NEGATIVE); COCAINE SCREEN URINE NEGATIVE (NEGATIVE); METHADONE STAT NEGATIVE (NEGATIVE); OPIATE SCREEN URINE NEGATIVE (NEGATIVE); OXYCODONE STAT NEGATIVE (NEGATIVE); PROPOXYPHENE STAT NEGATIVE (NEGATIVE); TRICYCLIC ANTIDEPRESSANTS SCRE NEGATIVE (NEGATIVE)
[2022-08-28] MEDS ORDERED: TAMSULOSIN 0.4 MG (FLOMAX) CAP PO STA (22:44)
[2022-08-28] MEDS ORDERED: TMSL.4C PO (22:48)
[2022-08-28 22:57] VITALS: BP 141/88
== END 2022-08-28 22:57 | disposition home or self-care (01) ==
LOC: EDUNIT# 17:46 → ER 17:51
DX: R53.1 Weakness (principal); R07.81 Pleurodynia; F17.210 Nicotine dependence, cigarettes, uncomplicated; Z86.73 Personal history of transient ischemic attack (TIA), and cerebral infarction without residual deficits; W18.30XA Fall on same level, unspecified, initial encounter; W22.8XXA Striking against or struck by other objects, initial encounter
CPT/HCPCS: 71045; 80053; 80306; 81000; 82140; 82947; 85007; 85027; 93005; 99284; G0480 ×3; 36415; 80320; 80329